=== PATIENT | male | born 1970 | race Two or more races ===

== ENCOUNTER 2017-03-10 18:09 | Inpatient (IN) | payer MEDICARE, MEDICAID ==
[~2017-03-10] VITALS: Ht 182.9 cm; Wt 77.1 kg
--- NOTE | 2017-03-10 18:15 | NUR ---
Dr Villatoro at bedside.
--- NOTE | 2017-03-10 18:19 | NUR ---
Code Stroke activated per Dr Irving fernandez.
--- NOTE | 2017-03-10 18:21 | NUR ---
Pt to Ct with ACLS guidelines in place with myself and training technician.
[2017-03-10 18:31] LABS: BASOPHILS % (AUTO) 0.5 % (0.0-2.0); EOSINOPHILS # (AUTO) 0.4 K/uL (0.0-0.7); EOSINOPHILS % (AUTO) 5.2 % (0.0-7.0); HEMATOCRIT 36.7 % (36.7-47.1); HEMOGLOBIN 12.1 g/dL (12.5-16.3); LYMPHOCYTES # (AUTO) 1.7 K/uL (20.0-40.0); LYMPHOCYTES % (AUTO) 21.4 % (20.5-51.5); MEAN CORPUSCULAR HGB CONC 33 g/dL (32.5-36.3); MEAN CORPUSCULAR VOLUME 84.7 fL (73.0-96.2); MONOCYTES # (AUTO) 0.5 K/uL (2.0-10.0); MONOCYTES % (AUTO) 6.1 % (0.0-11.0); NEUTROPHILS # (AUTO) 5.2 K/uL (1.8-8.9); NEUTROPHILS % (AUTO) 66.8 % (38.5-71.5); PLATELET COUNT (AUTO) 266 K/uL (152-348); RED BLOOD CELL COUNT(AUTO) 4.33 MIL/uL (4.06-5.63); RED CELL DISTRIBUTION WIDTH 13.2 % (12.1-16.2); WHITE BLOOD COUNT (AUTO) 7.8 K/uL (3.6-10.2)
--- NOTE | 2017-03-10 18:32 | NUR ---
Back from Ct.
--- NOTE | 2017-03-10 18:34 | NUR ---
Tele-Neurology activated.
[2017-03-10 18:36] LABS: CALCIUM 9.8 mg/dL (8.5-10.1); POTASSIUM 5.3 mmol/L (3.5-5.1)
[2017-03-10 18:40] LABS: CREATININE 1.9 mg/dL (0.6-1.3)
[2017-03-10 18:41] LABS: ALBUMIN 3.3 g/dL (3.4-5.0); BILIRUBIN,DIRECT 0.1 mg/dL (0.0-0.2); BILIRUBIN,TOTAL 0.4 mg/dL (0.2-1.0); TOTAL PROTEIN, SERUM 7.6 g/dL (6.4-8.2)
--- NOTE | 2017-03-10 18:42 | NUR ---
Dr Winston speaking with pt via telecart.
--- NOTE | 2017-03-10 19:05 | NUR ---
Per Dr Villatoro pt to be admitted to tele.
--- NOTE | 2017-03-10 19:10 | NUR ---
Hands-off report given to Umesh CHAIDEZ.
[2017-03-10] MEDS ORDERED: Z GUARD REMEDY PASTE 57 GM TUBE TOP PRN (19:15)
[2017-03-10] MEDS ORDERED: MAGNESIUM HYDROXIDE 30 ML LIQUID UDC PO PRN (19:15)
[2017-03-10] MEDS ORDERED: ONDANSETRON 4 MG/2 ML VIAL IV PRN (19:15)
[2017-03-10] MEDS ORDERED: HYDROCODONE/APAP 5-325MG TABLET PO PRN (19:15)
[2017-03-10] MEDS ORDERED: ACETAMINOPHEN 325 MG TABLET PO PRN (19:15)
[2017-03-10] MEDS ORDERED: DEXTROSE 50% 50 ML DISP.SYRIN IV PRN (19:15)
[2017-03-10] MEDS ORDERED: ASPIRIN 81 MG TAB.CHEW PO ONE (19:15)
[2017-03-10] MEDS ORDERED: TEMAZEPAM 7.5 MG CAPSULE PO PRN (19:15)
[2017-03-10] MEDS ORDERED: ASPIRIN 81 MG TAB.CHEW ONE (19:18)
--- NOTE | 2017-03-10 19:37 | NUR ---
TEXTED DR. PAYTON FOR MRI APPROVAL.
--- NOTE | 2017-03-10 19:38 | NUR ---
DR. PAYTON TEXTED BACK, ON HOLD FOR NOW UNTIL GIVES OK.
--- NOTE | 2017-03-10 19:52 | NUR ---
Report given to Shobha, advised to f/u with Vadim (head of radiology at [facility]), who states he is waiting from notice from [facility] to proceed with MRI....
--- NOTE | 2017-03-10 20:40 | NUR ---
Pt. admitted to telemetry , under care of Dr. Jerel Padilla, Belongs List completed, pt alert, oriented x 4, no resp distress noted or reported upon transfer assessment... pt transferred via gurney, pt at bedside...
[2017-03-10 21:00] VITALS: BP 138/99
[2017-03-10] MEDS ORDERED: ATORVASTATIN 40 MG TABLET PO SCH (21:00)
[2017-03-10] MEDS: BLOOD SUGAR DIAGNOSTIC 1 EACH STRIP VI SCH (21:00)
[2017-03-10] MEDS: IV NS 1000 ML 1,000 ML IV PRN (22:09)
[2017-03-10] MEDS: MORPHINE SULFATE 2 MG/1 ML DISP.SYRIN IV PRN (22:10)
[2017-03-10] MEDS: INSULIN REGULAR, HUMAN 300 UNITS/3 ML VIAL SQ PRN (22:34)
[2017-03-11 00:41] VITALS: BP 121/69
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
[2017-03-11 04:00] VITALS: BP 118/77
[2017-03-11] MEDS: MORPHINE SULFATE 2 MG/1 ML DISP.SYRIN IV PRN ×4 (05:19→20:35)
[2017-03-11] MEDS: PANTOPRAZOLE SODIUM 40 MG TABLET.DR PO SCH (06:49)
[2017-03-11 06:54] LABS: BASOPHILS # (AUTO) 0.1 K/uL (0.0-8.0); BASOPHILS % (AUTO) 0.9 % (0.0-2.0); EOSINOPHILS # (AUTO) 0.6 K/uL (0.0-0.7); EOSINOPHILS % (AUTO) 7.4 % (0.0-7.0); LYMPHOCYTES # (AUTO) 2.8 K/uL (20.0-40.0); LYMPHOCYTES % (AUTO) 37.1 % (20.5-51.5); MEAN CORPUSCULAR HEMOGLOBIN 28.5 uug (23.8-33.4); MEAN CORPUSCULAR HGB CONC 33 g/dL (32.5-36.3); MEAN CORPUSCULAR VOLUME 85.1 fL (73.0-96.2); MONOCYTES # (AUTO) 0.6 K/uL (2.0-10.0); MONOCYTES % (AUTO) 7.6 % (0.0-11.0); NEUTROPHILS # (AUTO) 3.4 K/uL (1.8-8.9); PLATELET COUNT (AUTO) 219 K/uL (152-348); RED BLOOD CELL COUNT(AUTO) 3.88 MIL/uL (4.06-5.63); RED CELL DISTRIBUTION WIDTH 13.5 % (12.1-16.2); WHITE BLOOD COUNT (AUTO) 7.5 K/uL (3.6-10.2)
[2017-03-11] MEDS: BLOOD SUGAR DIAGNOSTIC 1 EACH STRIP VI SCH ×4 (06:58→20:39)
[2017-03-11 07:31] LABS: ALBUMIN 2.6 g/dL (3.4-5.0); BILIRUBIN,TOTAL 0.3 mg/dL (0.2-1.0); MAGNESIUM 1.3 mg/dL (1.8-2.4); PHOSPHOROUS 3.8 mg/dL (2.5-4.9); POTASSIUM 4.8 mmol/L (3.5-5.1); TOTAL PROTEIN, SERUM 6.4 g/dL (6.4-8.2)
[2017-03-11 07:34] LABS: CREATININE 1.7 mg/dL (0.6-1.3)
[2017-03-11] MEDS: INSULIN REGULAR, HUMAN 300 UNIT/3 ML VIAL SQ PRN ×3 (07:48→16:57)
--- NOTE | 2017-03-11 08:00 | NUR ---
SEEN BY DR PALMA ZELAYA WITH ORDERS, SEE NOTES
[2017-03-11] MEDS: ASPIRIN 325 MG TABLET PO SCH (08:26)
[2017-03-11] MEDS: MAGNESIUM SULFATE/D5W 100 ML IV SCH ×2 (10:58→12:32)
[2017-03-11] MEDS: IV NS 1000 ML 1,000 ML IV PRN (11:09)
[2017-03-11 11:37] VITALS: BP 128/82
--- NOTE | 2017-03-11 12:00 | NUR ---
SEEN BY PT/OT FOR THERAPY SEE NOTES
[2017-03-11 13:16] LABS: *BILIRUBIN,URIN NEGATIVE (NEGATIVE); *BLOOD, URINE Trace-lysed (NEGATIVE); *CLARITY,URINE CLEAR (CLEAR); *COLOR,URINE YELLOW (YELLOW); *KETONES,URINE NEGATIVE (NEGATIVE); *UROBILINOGEN,URINE 0.2 E.U./dl (NORMAL); LEUKOCYTE ESTERASE ,URINE NEGATIVE (NEGATIVE); NITRITE, URINE NEGATIVE (NEGATIVE); PH,URINE 5.5 (5.0-8.0); UGLUCOSE TRACE (NEGATIVE)
[2017-03-11 13:25] LABS: *PROTEIN,URINE 3+ (NEGATIVE)
[2017-03-11 13:28] LABS: *AMPHETAMINE, URINE NEGATIVE (NEGATIVE); *BARBITURATE, URINE NEGATIVE (NEGATIVE); *CANNABINOID, URINE NEGATIVE (NEGATIVE); *COCCAINE, URINE NEGATIVE (NEGATIVE); *OPIATE, URINE POSITIVE (NEGATIVE); *PHENCYCLIDINE SCREEN,URINE NEGATIVE (NEGATIVE)
[2017-03-11 13:31] LABS: BACTERIA,URINE FEW /HPF (NONE SEEN); RBC,URINE 0-3 /HPF (0-3); SQUAMOUS EPITHELIAL CELL,UR NONE SEEN /HPF (NONE SEEN); WBC,URINE 0-3 /HPF (0-3)
--- NOTE | 2017-03-11 15:23 | NUR ---
NO ACUTE CHANGE SR/SB ON MONITOR
[2017-03-11 15:55] VITALS: BP 105/66
[2017-03-11] MEDS ORDERED: BRIM5DRO EACHEYE (16:41)
[2017-03-11] MEDS ORDERED: ATRO10DR OP (16:41)
[2017-03-11] MEDS ORDERED: INSU100C (16:41)
[2017-03-11] MEDS ORDERED: FLUO20CA36 PO (16:41)
[2017-03-11] MEDS ORDERED: DORZ10DR11 EACHEYE (16:41)
[2017-03-11] MEDS ORDERED: ASPI81TA31 PO (16:41)
[2017-03-11] MEDS ORDERED: [UNRECOGNIZED DRUG - CODE] OP (16:41)
[2017-03-11] MEDS ORDERED: ROSU5TAB PO (16:41)
[2017-03-11] MEDS ORDERED: ARIP30TA PO (16:41)
[2017-03-11] MEDS ORDERED: SODI650T PO (16:48)
[2017-03-11] MEDS ORDERED: PRED1TAB PO (16:48)
[2017-03-11] MEDS ORDERED: PRED5DRO7 RIGHTEYE (16:48)
[2017-03-11] MEDS ORDERED: EYEL1TOW2 OP (16:48)
[2017-03-11] MEDS ORDERED: LANS30CA56 PO (16:48)
[2017-03-11] MEDS ORDERED: INSU3INS6 SUBCUT (16:48)
[2017-03-11] MEDS ORDERED: HYDR12.55 PO (16:48)
[2017-03-11] MEDS ORDERED: ASEN10TA9 SL (16:50)
[2017-03-11] MEDS ORDERED: TIMO5DRO4 EACHEYE (16:50)
[2017-03-11] MEDS ORDERED: TAMS-3 PO (16:50)
[2017-03-11] MEDS ORDERED: ZOLP5TAB7 PO (16:50)
[2017-03-11] MEDS ORDERED: ACET1TAB12 PO (16:50)
[2017-03-11] MEDS ORDERED: TRAM50TA2 PO (16:50)
[2017-03-11] MEDS ORDERED: TRAMADOL HCL 50 MG TABLET PO SCH (18:00)
[2017-03-11] MEDS ORDERED: EYELID CLEANSER COMBINATION OP PRN (18:00)
--- NOTE | 2017-03-11 18:08 | NUR ---
NO ACUTE CHANGE, SR ON MONITOR. CONTINUE WITH PAIN MANAGEMENT
[2017-03-11] MEDS ORDERED: DORZ10DR8 EACHEYE (18:33)
[2017-03-11] MEDS ORDERED: CYCL2DRO10 OP (18:34)
[2017-03-11] MEDS ORDERED: POLYVINYL ALCOHOL OPHT DROPS 15 ML BOTTLE EACHEYE PRN (18:45)
--- NOTE | 2017-03-11 20:00 | NUR ---
patient awake,alert,oriented,left side weakness resolved,no slurring speech,ambulating on hallway with family,NSR on monitor,no acute distress noted.
[2017-03-11 20:15] VITALS: BP 106/72
[2017-03-11] MEDS: prednisoLONE ACET 1% OPHT DROP 5 ML BOTTLE RIGHTEYE SCH (20:25)
[2017-03-11] MEDS: INSULIN REGULAR, HUMAN 300 UNITS/3 ML VIAL SQ PRN (20:44)
[2017-03-11] MEDS ORDERED: ATORVASTATIN 10 MG TABLET PO SCH ×3 (21:00)
[2017-03-11] MEDS ORDERED: ATORVASTATIN 40 MG TABLET PO SCH (21:00)
[2017-03-11] MEDS ORDERED: INSULIN DETEMIR 300 UNIT/3 ML CARTRIDGE SQ SCH (21:00)
[2017-03-11] MEDS ORDERED: ARIPIPRAZOLE 10 MG TABLET PO SCH (21:00)
[2017-03-11] MEDS ORDERED: Medication Not On Formulary EA (Rosuvastatin Calcium (Crestor) 1 TAB) PO SCH (21:00)
[2017-03-11] MEDS ORDERED: ZOLPIDEM 5 MG TABLET PO SCH (21:00)
[2017-03-12] VITALS: BP 97/61
[2017-03-12] MEDS: MORPHINE SULFATE 2 MG/1 ML DISP.SYRIN IV PRN ×2 (02:39→08:24)
[2017-03-12 04:00] VITALS: BP 96/62
[2017-03-12] MEDS: PANTOPRAZOLE SODIUM 40 MG TABLET.DR PO SCH (06:17)
[2017-03-12] MEDS: BLOOD SUGAR DIAGNOSTIC 1 EACH STRIP VI SCH (06:18)
--- NOTE | 2017-03-12 06:40 | NUR ---
no acute change ,c/o pain to right hand wound,medicated with Morphine 2mg iv as needed for pain controlled,stroke education material provided,patient verbalized understanding.
--- NOTE | 2017-03-12 07:05 | NUR ---
PT RESTING COMFORTABLY IN BED NO SIGNS OF DISTRESS, PAIN. SR ON MONITOR
[2017-03-12 07:07] LABS: BASOPHILS # (AUTO) 0.1 K/uL (0.0-8.0); BASOPHILS % (AUTO) 1.1 % (0.0-2.0); EOSINOPHILS # (AUTO) 0.6 K/uL (0.0-0.7); EOSINOPHILS % (AUTO) 8.8 % (0.0-7.0); HEMATOCRIT 29.8 % (36.7-47.1); LYMPHOCYTES # (AUTO) 2.6 K/uL (20.0-40.0); LYMPHOCYTES % (AUTO) 37.3 % (20.5-51.5); MEAN CORPUSCULAR HEMOGLOBIN 28.4 uug (23.8-33.4); MEAN CORPUSCULAR HGB CONC 34 g/dL (32.5-36.3); MEAN CORPUSCULAR VOLUME 84.6 fL (73.0-96.2); MONOCYTES # (AUTO) 0.6 K/uL (2.0-10.0); MONOCYTES % (AUTO) 8.7 % (0.0-11.0); NEUTROPHILS % (AUTO) 44.1 % (38.5-71.5); PLATELET COUNT (AUTO) 202 K/uL (152-348); RED BLOOD CELL COUNT(AUTO) 3.52 MIL/uL (4.06-5.63); RED CELL DISTRIBUTION WIDTH 13.7 % (12.1-16.2); WHITE BLOOD COUNT (AUTO) 6.9 K/uL (3.6-10.2)
[2017-03-12 07:12] LABS: CALCIUM 8.6 mg/dL (8.5-10.1); MAGNESIUM 1.8 mg/dL (1.8-2.4); POTASSIUM 4.9 mmol/L (3.5-5.1)
[2017-03-12 07:13] LABS: CREATININE 1.7 mg/dL (0.6-1.3)
--- NOTE | 2017-03-12 07:41 | NUR ---
SEEN BY DR WALDROP WITH ORDERS, SEE NOTES
[2017-03-12] MEDS: ASPIRIN 325 MG TABLET PO SCH (08:11)
[2017-03-12 08:17] VITALS: BP 112/64
[2017-03-12] MEDS: prednisoLONE ACET 1% OPHT DROP 5 ML BOTTLE RIGHTEYE SCH (08:28)
[2017-03-12] MEDS ORDERED: DORZOLAMIDE 2% OPHT DROP 10 ML BOTTLE EACHEYE SCH (09:00)
[2017-03-12] MEDS ORDERED: BRIMONIDINE-P 0.15% OPHT DROP 5 ML BOTTLE EACHEYE SCH (09:00)
[2017-03-12] MEDS ORDERED: FLUOXETINE HCL 20 MG CAPSULE PO SCH (09:00)
[2017-03-12] MEDS ORDERED: HYDROCHLOROTHIAZIDE 12.5 MG CAPSULE PO SCH (09:00)
[2017-03-12] MEDS ORDERED: NICOTINE 21 MG/24HR PATCH TD SCH (09:00)
[2017-03-12] MEDS ORDERED: DORZOLAMIDE/TIMOLOL OPHT DROP 10 ML BOTTLE EACHEYE SCH (09:00)
[2017-03-12] MEDS ORDERED: TAMSULOSIN HCL 0.4 MG CAP.SR.24H PO SCH (09:00)
[2017-03-12] MEDS ORDERED: SODIUM BICARBONATE 650 MG TABLET PO SCH (09:00)
[2017-03-12] MEDS ORDERED: TIMOLOL MALEATE 0.5% OPHT DROP 5 ML BOTTLE EACHEYE SCH (09:00)
[2017-03-12] MEDS ORDERED: CYCLOPENTOLATE 1% OPHT DROP 2 ML BOTTLE EACHEYE SCH (09:00)
[2017-03-12] MEDS ORDERED: [UNRECOGNIZED DRUG - MIXTURE] OP SCH (09:00)
[2017-03-12] MEDS ORDERED: ATROPINE SULFATE 1% OPHT DROP 2 ML LEFTEYE SCH (09:00)
[2017-03-12] MEDS ORDERED: Medication Not On Formulary EA (Hydrochlorothiazide 12.5 MG) PO SCH (09:00)
[2017-03-12] MEDS ORDERED: BRIMONIDINE 0.2% OPHT DROP 10 ML BOTTLE EACHEYE SCH (09:00)
--- NOTE | 2017-03-12 10:10 | NUR ---
Patient provided with discharge instructions and follow up care with PCP and [employer], medication instructions provided and reinforced by Pharmacy, questions and concerns addressed, patient stable. at bedside reinforced with family. belongings returned and accounted for.
[2017-03-12] MEDS ORDERED: TRAMADOL HCL 50 MG TABLET PO PRN (18:00)
== END 2017-03-12 10:55 | disposition home or self-care (01) | DRG 69 ==
LOC: ER 18:11 → EDBD 18:11 → CCU 20:42 → TELE 20:57
PROVIDERS: ADMIT Family Medicine; ATTEND Family Medicine
DX: G45.9 Transient cerebral ischemic attack, unspecified (principal); N17.0 Acute kidney failure with tubular necrosis; I69.854 Hemiplegia and hemiparesis following other cerebrovascular disease affecting left non-dominant side; E11.319 Type 2 diabetes mellitus with unspecified diabetic retinopathy without macular edema; E11.22 Type 2 diabetes mellitus with diabetic chronic kidney disease; E11.21 Type 2 diabetes mellitus with diabetic nephropathy; I25.10 Atherosclerotic heart disease of native coronary artery without angina pectoris; N18.9 Chronic kidney disease, unspecified; E11.65 Type 2 diabetes mellitus with hyperglycemia; E78.5 Hyperlipidemia, unspecified; Z91.14 Patient's other noncompliance with medication regimen; Z86.61 Personal history of infections of the central nervous system; F17.200 Nicotine dependence, unspecified, uncomplicated; I12.9 Hypertensive chronic kidney disease with stage 1 through stage 4 chronic kidney disease, or unspecified chronic kidney disease; N18.3 Chronic kidney disease, stage 3 (moderate); Z98.61 Coronary angioplasty status; N13.9 Obstructive and reflux uropathy, unspecified; V89.2XXS Person injured in unspecified motor-vehicle accident, traffic, sequela
CPT/HCPCS: 36415; 70030-TC; 70450; 71010; 80307; 83735; 84100; 84443; 85025; 85651; 85730; 86592; 92610; 93005; 93307; 93880; 97001; 97003; 97110; 97530; A9150; J1815; J2270; J2650; J3475; J7030

== ENCOUNTER 2019-10-07 22:01 | Emergency (ER) | payer MEDICAID, MEDICARE, OTHER ==
[~2019-10-07] VITALS: Ht 182.9 cm; Wt 83.9 kg
[~2019-10-07 22:01] MED LIST: ACET1TAB12 PO; ARIP30TA3 PO; ASEN10TA9 SL; ATRO10DR OP; BRIM5DRO EACHEYE; CYCL2DRO10 OP; DORZ10DR10 EACHEYE; EYEL1TOW2 OP; FLUO20CA36 PO; HYDR12.55 PO; INSU100C; INSU3INS6 SUBCUT; LANS30CA56 PO; PRED1TAB PO; PRED5DRO16 RIGHTEYE; SODI650T PO; TAMS-3 PO; TIMO5DRO4 EACHEYE; TRAM50TA2 PO; ZOLP5TAB8 PO
[2019-10-07] MEDS ORDERED: GABA-532 PO (22:38)
[2019-10-07] MEDS ORDERED: ATOR40TA PO (22:38)
[2019-10-07] MEDS ORDERED: ASPI81TA31 PO (22:38)
[2019-10-07] MEDS ORDERED: RISP2TAB23 PO (22:38)
[2019-10-07] MEDS ORDERED: SITA50TA PO (22:38)
--- NOTE | 2019-10-07 22:50 | NUR ---
maría cade at bedside for mse.
[2019-10-07] MEDS ORDERED: MORPHINE SULFATE 2 MG/1 ML DISP.SYRIN ONE (22:57)
[2019-10-07] MEDS ORDERED: MORPHINE SULFATE 2 MG/1 ML DISP.SYRIN IV ONE (23:00)
[2019-10-07 23:01] LABS: HEMATOCRIT 29.9 % (40-50); HEMOGLOBIN 9.7 G/DL (14.0-18.0); LYMPHOCYTES % (AUTO) 21.9 % (20.5-51.5); MEAN CORPUSCULAR HEMOGLOBIN 28.6 UUG (27.0-31.0); MEAN CORPUSCULAR HGB CONC 32 g/dL (32.0-37.0); MEAN CORPUSCULAR VOLUME 88.2 FL (82.0-92.0); NEUTROPHILS % (AUTO) 59.1 % (38.5-71.5); PLATELET COUNT (AUTO) 222 K/UL (150-450); RED BLOOD CELL COUNT(AUTO) 3.39 MIL/UL (4.7-6.1); WHITE BLOOD COUNT (AUTO) 6.7 K/UL (4.0-11.2)
[2019-10-07 23:02] LABS: BASOPHILS # (AUTO) 0.1 K/uL (0.0-8.0); BASOPHILS % (AUTO) 1.5 % (0.0-2.0); EOSINOPHILS # (AUTO) 0.6 K/uL (0.0-0.7); EOSINOPHILS % (AUTO) 8.5 % (0.0-7.0); LYMPHOCYTES # (AUTO) 1.5 K/UL (0.8-4.8); MONOCYTES # (AUTO) 0.6 K/UL (0.1-1.30)
[2019-10-07 23:07] LABS: CARBON DIOXIDE 24 mmol/L (21-32); CHLORIDE 114 mmol/L (98-107); POTASSIUM 4.9 mmol/L (3.5-5.1)
[2019-10-07 23:08] LABS: ALKALINE PHOSPHATASE < 10 U/L (50-136); ASPARTATE AMINOTRANSFERASE 14 U/L (15-37); BILIRUBIN,DIRECT 0.1 mg/dL (0.0-0.2); BILIRUBIN,TOTAL 0.3 mg/dL (0.1-1.0); CREATININE 3.4 mg/dL (0.6-1.3); GLUCOSE 109 mg/dL (74-106); UREA NITROGEN, BLOOD 35 mg/dL (7-20)
[2019-10-07 23:09] LABS: ALANINE AMINOTRANSFERASE 24 U/L (16-63); TOTAL PROTEIN, SERUM 7.3 g/dL (6.4-8.2)
--- NOTE | 2019-10-08 00:34 | NUR ---
Patient discharged to home in stable conditon. Written and verbal after care instructions given. Patient verbalizes understanding of instructions. all belongings w/ pt. pt self-ambulated w/o difficulty. 20g iv access in rac removed prior to d/c - inner cannula intact.
[2019-10-08 00:35] VITALS: BP 131/88
== END 2019-10-08 00:35 | disposition home or self-care (01) ==
LOC: ER 22:01
DX: N18.9 Chronic kidney disease, unspecified (principal); I12.9 Hypertensive chronic kidney disease with stage 1 through stage 4 chronic kidney disease, or unspecified chronic kidney disease; E11.22 Type 2 diabetes mellitus with diabetic chronic kidney disease; F32.9 Major depressive disorder, single episode, unspecified; F17.200 Nicotine dependence, unspecified, uncomplicated; Z88.1 Allergy status to other antibiotic agents; Z91.011 Allergy to milk products; Z91.018 Allergy to other foods; Z79.82 Long term (current) use of aspirin; Z79.4 Long term (current) use of insulin; Z79.899 Other long term (current) drug therapy
CPT/HCPCS: 80048; 80076; 85025; 96374; 99283; J2270; A4663

== ENCOUNTER 2021-10-06 15:57 | Inpatient (IN) | payer OTHER ==
[~2021-10-06] VITALS: Ht 182.9 cm; Wt 75.7 kg
[~2021-10-06 15:57] MED LIST changes: +ASPI81TA31 PO; +ATOR40TA PO; +GABA-532 PO; +RISP2TAB85 PO; +SITA50TA PO
--- NOTE | 2021-10-06 16:12 | NUR ---
PT DOES NOT REMEMBER CHANGES IN HIS HOME MEDICATIONS. PT's IS GOING TO BRING HIS HOME MEDICATION LIST LATER.
--- NOTE | 2021-10-06 16:39 | NUR ---
Saline lock placed to (L) wrist and labs drawn. Pt resting in semi fowlers position.
[2021-10-06] MEDS ORDERED: ASPIRIN 325 MG TABLET PO ONE (16:45)
[2021-10-06] MEDS ORDERED: MORPHINE SULFATE 4 MG/1 ML DISP.SYRIN IV ONE ×2 (16:45→19:30)
[2021-10-06 17:01] LABS: MEAN CORPUSCULAR HEMOGLOBIN 29.9 uug (23.8-33.4); PLATELET COUNT (AUTO) 94 K/uL (152-348)
[2021-10-06 17:02] LABS: ALANINE AMINOTRANSFERASE 15 U/L (16-63); ALKALINE PHOSPHATASE 121 U/L (50-136); ASPARTATE AMINOTRANSFERASE 11 U/L (15-37); BILIRUBIN,DIRECT 0.1 mg/dL (0.0-0.2); BILIRUBIN,TOTAL 0.3 mg/dL (0.2-1.0); CARBON DIOXIDE 22 mmol/L (21-32); CHLORIDE 106 mmol/L (98-107); GLUCOSE 99 mg/dL (74-106); POTASSIUM 4.2 mmol/L (3.5-5.1); TOTAL PROTEIN, SERUM 6.8 g/dL (6.4-8.2); UREA NITROGEN, BLOOD 31 mg/dL (7-18)
[2021-10-06 17:07] LABS: HEMATOCRIT 18.8 % (36.7-47.1)
--- NOTE | 2021-10-06 17:11 | NUR ---
Medications administered as ordered. Spouse at bedside. Spouse states able to change pt diaper herself, was provided with necessary supplies.
[2021-10-06] MEDS ORDERED: ASPIRIN 325 MG TABLET ONE (17:12)
[2021-10-06] MEDS ORDERED: MORPHINE SULFATE 4 MG/1 ML DISP.SYRIN ONE ×2 (17:12→19:41)
[2021-10-06] MEDS ORDERED: VALP250C3 PO (17:26)
[2021-10-06] MEDS ORDERED: MULT-596 (17:26)
[2021-10-06] MEDS ORDERED: PANT40TA49 PO (17:26)
[2021-10-06] MEDS ORDERED: AMOX500C2 PO (17:26)
[2021-10-06] MEDS ORDERED: QUET50TA PO (17:26)
[2021-10-06] MEDS ORDERED: OLAN10TA3 PO (17:26)
[2021-10-06] MEDS ORDERED: LEVO75TA7 PO (17:26)
[2021-10-06] MEDS ORDERED: CYCL5TAB PO (17:26)
[2021-10-06 17:28] LABS: *OCCULT BLOOD STOOL POSITIVE (NEGATIVE)
[2021-10-06] MEDS ORDERED: METF-440 PO (17:30)
[2021-10-06] MEDS ORDERED: PIPERACILLIN SODIUM/TAZOBACTAM 3.375 G in IV DEXTROSE 5% 50 ML IV ONE (18:15)
--- NOTE | 2021-10-06 19:05 | NUR ---
Hand-off report given to KAYLYNN Singletary
[2021-10-06] MEDS ORDERED: PIPERACILLIN/TAZOBACTAM/D5W 50 ML IV ONE (19:17)
--- NOTE | 2021-10-06 20:05 | NUR ---
Started IV blood transfusion to IV on left wrist 20G, blood product double verified with Rayshawn Breaux RN.
--- NOTE | 2021-10-06 20:28 | NUR ---
Called [facility] to hien Zhou NP for an update due to patient's insurance going to send patient to produce laborer tomorrow.
[2021-10-06] MEDS ORDERED: MAGNESIUM HYDROXIDE 30 ML LIQUID UDC PO PRN (21:15)
[2021-10-06] MEDS ORDERED: ACETAMINOPHEN 325 MG TABLET PO PRN (21:15)
[2021-10-06] MEDS ORDERED: ONDANSETRON 4 MG/2 ML VIAL IV PRN (21:15)
[2021-10-06] MEDS ORDERED: Z GUARD REMEDY PASTE 57 GM TUBE TOP PRN (21:15)
[2021-10-06] MEDS ORDERED: MORPHINE SULFATE 2 MG/1 ML DISP.SYRIN IV PRN (21:30)
[2021-10-06] MEDS ORDERED: MORPHINE SULFATE 2 MG/1 ML DISP.SYRIN ONE ×2 (21:31→23:12)
--- NOTE | 2021-10-06 22:25 | NUR ---
Blood transfusion finished, patient tolerated procedure well, no acute signs of distress, VSS.
[2021-10-06] MEDS: MORPHINE SULFATE 2 MG/1 ML DISP.SYRIN IV PRN (23:06)
[2021-10-06 23:07] LABS: BAND % (MANUAL) 2 % (0-10); EOSINOPHILS % (MANUAL) 9 % (0-8); LYMPHOCYTES % (MANUAL) 23 % (20-40); MONOCYTES % (MANUAL) 15 % (2-10); NEUTROPHILS % (MANUAL) 51 % (42-75)
[2021-10-07] VITALS (11 sets, daily range): BP systolic 128–152; BP diastolic 65–104
--- NOTE | 2021-10-07 01:48 | NUR ---
Called [facility] to page Vernon Cao DNP.
--- NOTE | 2021-10-07 01:55 | NUR ---
Received call back from Vernon Cao DNP, to upgrade patient to [facility].
--- NOTE | 2021-10-07 03:54 | NUR ---
Report given to Naima Johnson RN CCU.
--- NOTE | 2021-10-07 04:30 | NUR ---
Received report from [facility] CHAIDE[facility] ED. Patient was transferred from ED and admitted to CCU Bed 1 via rstigler, without any incident. Patient is awake, A/Ox4. Denies pain at this time. No signs of acute distress noted. RUC permacath for hemodialysis, L wrist 20G SL patent and flushed. Patient's belongings list checked upon transfer. Body assessment dont. Wound photos taken and placed to chart. Bed at lowest position, brakes on, bed alarm on, side rails x2. Call light within reach. Will continue to monitor closely.
[2021-10-07 05:44] LABS: HEMATOCRIT 21.9 % (36.7-47.1); MEAN CORPUSCULAR HEMOGLOBIN 29.8 uug (23.8-33.4); MEAN CORPUSCULAR VOLUME 91.8 fL (73.0-96.2); PLATELET COUNT (AUTO) 91 K/uL (152-348)
[2021-10-07 05:50] LABS: MAGNESIUM 1.9 mg/dL (1.8-2.4)
[2021-10-07 06:00] LABS: CREATININE 8.8 mg/dL (0.6-1.3)
--- NOTE | 2021-10-07 06:00 | NUR ---
Lab called and spoke with Raymon for critical lab results.
--- NOTE | 2021-10-07 06:20 | NUR ---
Called [facility] and jeniffer with Reymundo Cao NP regarding patient's critical lab results, with new orders to transfuse 1"u" PRBC now. Noted and carried out.
--- NOTE | 2021-10-07 06:50 | NUR ---
Started blood transfusion. VSS. Will continue to monitor closely.
--- NOTE | 2021-10-07 07:30 | NUR ---
Left patient asleep, arousable to name; no signs of pain nor acute distress noted. Still with ongoing blood transfusion, no allergic reactions noted. VSS. Endorsed continuity of care.
--- NOTE | 2021-10-07 07:49 | NUR ---
Received pt. sleeping and currently on 2LNC saturation of %. no respiratory distress noted. Hemodynamically stable rate in the 60-70's with SBP of 140/82. IV access patent and infusing with 2nd unit of PRBC's pt. tolerating infusion well no distress noted. will continue to monitor. Admitting physician called to be notified of pt's arrival to the unit.
--- NOTE | 2021-10-07 08:30 | NUR ---
Patient seen by broom handle dipper Dr. Redmond, at this time discussed care plan with pt. and awaiting information of possible transfer.
[2021-10-07] MEDS: METOPROLOL TARTRATE 25 MG TABLET PO SCH ×2 (09:15→20:36)
[2021-10-07] MEDS ORDERED: ISOSORBIDE MONONITRATE 30 MG TAB.SR.24H PO SCH (09:15)
[2021-10-07] MEDS: MORPHINE SULFATE 2 MG/1 ML DISP.SYRIN IV PRN ×2 (09:25→14:54)
--- NOTE | 2021-10-07 11:22 | NUR ---
At this time pt. had a visitor as stated by visitor "". She feed pt. a big sandwich. At this time both pt. and educated one more time on NPO status and pending possible egd, or colonoscopy when transferred. Pt's verbalized understanding but pt. himself become upset started coursing and use of profanity language and threaten to leave AMA. attending called and notified.
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
[2021-10-07] MEDS ORDERED: VALPROIC ACID 250 MG CAPSULE PO SCH (12:11)
--- NOTE | 2021-10-07 12:25 | NUR ---
Patient refused lab draw at this time.
[2021-10-07] MEDS ORDERED: PIPERACILLIN/TAZO 2.25 G in IV DEXTROSE 5% 50 ML IV SCH (12:30)
[2021-10-07] MEDS ORDERED: PIPERACILLIN/TAZO 2.25 G in IV DEXTROSE 5% 50 ML IV ONE (14:00)
--- NOTE | 2021-10-07 14:24 | NUR ---
A call from case management and as informed pt. had been approved to have a procedure done at [facility] and will be going via [facility] at the endo of the shift.
[2021-10-07] MEDS: PANTOPRAZOLE SODIUM 40 MG VIAL IV SCH ×2 (14:30→20:38)
[2021-10-07] MEDS: prednisoLONE ACET 1% OPHT DROP 5 ML BOTTLE RIGHTEYE SCH ×3 (14:32→20:38)
--- NOTE | 2021-10-07 16:26 | NUR ---
A call from Angeles FOWLER and I was informed pt. will be berry picker at 2030, going to room 322-1 and call for report to .
--- NOTE | 2021-10-07 16:58 | NUR ---
A call to [facility] at to give report on pt. been transfer to room 322-bed 1. as per hospice community liaison charge nurse busy and unable to come to the phone, and they requested call back number and as stated "will call when ready for report".
--- NOTE | 2021-10-07 17:23 | NUR ---
A call from Destin Zhou and orders to print TMS and continue with all medications received. Orders implemented.
[2021-10-07] MEDS ORDERED: CYCLOBENZAPRINE HCL 10 MG TABLET PO SCH (18:00)
[2021-10-07] MEDS ORDERED: OLANZAPINE 5 MG TABLET PO SCH (18:00)
[2021-10-07] MEDS ORDERED: CYCLOBENZAPRINE HCL PO SCH (18:00)
[2021-10-07 18:19] LABS: HEMATOCRIT 24.1 % (36.7-47.1)
--- NOTE | 2021-10-07 18:30 | NUR ---
A call from Michelle from [facility] report given she was informed that pt. will be parts picker as arranged by CM at 2020
--- NOTE | 2021-10-07 19:00 | NUR ---
Received patient asleep, arousable to name, A/Ox4. Denies pain at this time. No acute distress noted. On NC @ 2LPM, O2 sat 99%. IV site patent and flushed. No erythema, bleeding or infiltration noted. Patient is for transfer to [facility]. Comfort care provided. Bed at lowest position, brakes on, siderails x2, call light within reach. Will continue to monitor.
--- NOTE | 2021-10-07 19:20 | NUR ---
Patient made aware regarding patient's transfer.
--- NOTE | 2021-10-07 20:25 | NUR ---
Called [facility] ambulance and spoke with Shabnam following up with patient's transportation. She mentioned, "They are on their way."
--- NOTE | 2021-10-07 20:26 | NUR ---
Informed patient that transportation is on their way.
[2021-10-07] MEDS ORDERED: predniSONE 1 MG TABLET PO SCH (21:00)
[2021-10-07] MEDS ORDERED: ATORVASTATIN 40 MG TABLET PO SCH (21:00)
--- NOTE | 2021-10-07 21:05 | NUR ---
LEVI arrived and picked up patient for transfer to [facility]. Patient was transferred via gurney with NC @ 2LPM, without any incident, accompanied by 2 elementary educator. No signs of acute distress noted. Discharge packet and instructions handed to EMT. All belongings including wheelchair are with patient. Vital signs stable T=98.3, HR=61, RR=15, HT=785/83. No signs of acute distress noted. Addendum: 10/07/21 at 2154 by Naima Wiley RN O2 sat 98%.
--- NOTE | 2021-10-07 21:15 | NUR ---
Called [facility] and spoke with Polo, product development director Nurse regarding patient's transfer and en route.
[2021-10-08] MEDS ORDERED: PANTOPRAZOLE SODIUM 40 MG TABLET.DR PO SCH (07:00)
[2021-10-08] MEDS ORDERED: LEVOTHYROXINE SODIUM 75 MCG TABLET PO SCH (07:00)
[2021-10-08] MEDS ORDERED: VALPROIC ACID 250 MG CAPSULE PO SCH (09:00)
[2021-10-08] MEDS ORDERED: ATORVASTATIN 40 MG TABLET PO SCH (09:00)
[2021-10-09] MEDS ORDERED: DAPTOMYCIN 500 MG in IV NORMAL SALINE 50 ML IV SCH (09:00)
== END 2021-10-07 21:15 | disposition short-term general hospital (02) | DRG 377 ==
LOC: ER 15:59 → TRANSITION 21:12 → CCU 10-07 03:59
PROVIDERS: ADMIT Nurse Practitioner Family; ATTEND Nurse Practitioner Family
PROC: 30233N1 Transfusion of Nonautologous Red Blood Cells into Peripheral Vein, Percutaneous Approach (ICD-10-PCS; principal; 2021-10-06)
DX: K92.2 Gastrointestinal hemorrhage, unspecified (principal); N18.6 End stage renal disease; I21.A1 Myocardial infarction type 2; G82.20 Paraplegia, unspecified; D62 Acute posthemorrhagic anemia; I13.11 Hypertensive heart and chronic kidney disease without heart failure, with stage 5 chronic kidney disease, or end stage renal disease; C34.90 Malignant neoplasm of unspecified part of unspecified bronchus or lung; E11.22 Type 2 diabetes mellitus with diabetic chronic kidney disease; Z99.2 Dependence on renal dialysis; Z79.84 Long term (current) use of oral hypoglycemic drugs; Z95.5 Presence of coronary angioplasty implant and graft; Z88.1 Allergy status to other antibiotic agents; Z91.011 Allergy to milk products; Z59.01 Sheltered homelessness; Z90.49 Acquired absence of other specified parts of digestive tract; F17.210 Nicotine dependence, cigarettes, uncomplicated; D69.6 Thrombocytopenia, unspecified; I25.10 Atherosclerotic heart disease of native coronary artery without angina pectoris; Z79.4 Long term (current) use of insulin; Z79.899 Other long term (current) drug therapy; Z86.73 Personal history of transient ischemic attack (TIA), and cerebral infarction without residual deficits; Z98.1 Arthrodesis status; T14.90XS Injury, unspecified, sequela; V49.9XXS Car occupant (driver) (passenger) injured in unspecified traffic accident, sequela
CPT/HCPCS: 36415; 70030-TC; 71045; 83735; 85018; 85025; 86850; 86900; 86901; 86920; 87040; 87400; 93005; 93307; A4663; A6209; C9113; G0378; J2270; J2543; J2650; J3490; J7040; J7050; J7060; J7512; P9016

== ENCOUNTER 2022-08-31 15:34 | Inpatient (IN) | payer OTHER ==
[~2022-08-31] VITALS: Ht 188 cm; Wt 69.1 kg
[~2022-08-31 15:34] MED LIST changes: -ACET1TAB12 PO; -ARIP30TA3 PO; -ASEN10TA9 SL; -ASPI81TA31 PO; -ATRO10DR OP; -BRIM5DRO EACHEYE; -CYCL2DRO10 OP; +CYCL5TAB PO; -DORZ10DR10 EACHEYE; -EYEL1TOW2 OP; -FLUO20CA36 PO; -GABA-532 PO; -HYDR12.55 PO; -INSU100C; -INSU3INS6 SUBCUT; -LANS30CA56 PO; +LEVO75TA7 PO; +MULT-596 PO; +OLAN10TA3 PO; +PANT40TA49 PO; +PRED5DRO16 LEFTEYE; -PRED5DRO16 RIGHTEYE; +QUET50TA PO; -RISP2TAB85 PO; -SITA50TA PO; -SODI650T PO; -TAMS-3 PO; -TIMO5DRO4 EACHEYE; -TRAM50TA2 PO; +VALP250C3 PO; +VALP250S3 PO; -ZOLP5TAB8 PO
--- NOTE | 2022-08-31 15:35 | NUR ---
at bedside for evaluation.
[2022-08-31 16:18] LABS: HEMATOCRIT 27.5 % (36.7-47.1); MEAN CORPUSCULAR HEMOGLOBIN 27.4 uug (23.8-33.4); MEAN CORPUSCULAR VOLUME 86.5 fL (73.0-96.2); PLATELET COUNT (AUTO) 185 K/uL (152-348)
--- NOTE | 2022-08-31 16:25 | NUR ---
unable to place an IV, attepted by 3 nurses and . requesting midline placement, tank house operator states she is attempting to reach Ariella on-call picc nurse.
--- NOTE | 2022-08-31 16:35 | NUR ---
Midline catheter size 20 gauge inserted by in [facility].
[2022-08-31 16:50] LABS: ALANINE AMINOTRANSFERASE 33 U/L (16-63); ALKALINE PHOSPHATASE 190 U/L (50-136); ASPARTATE AMINOTRANSFERASE 40 U/L (15-37); BILIRUBIN,DIRECT 0.1 mg/dL (0.0-0.2); BILIRUBIN,TOTAL 0.5 mg/dL (0.2-1.0); CARBON DIOXIDE 19 mmol/L (21-32); CHLORIDE 105 mmol/L (98-107); GLUCOSE 91 mg/dL (74-106); POTASSIUM 4.8 mmol/L (3.5-5.1); TOTAL PROTEIN, SERUM 7.8 g/dL (6.4-8.2); UREA NITROGEN, BLOOD 65 mg/dL (7-18)
[2022-08-31] MEDS ORDERED: REMEDY ESSENTIAL ZINC PASTE 113 GM TP PRN (18:30)
[2022-08-31] MEDS ORDERED: ONDANSETRON 4 MG/2 ML VIAL IV PRN (18:30)
[2022-08-31] MEDS ORDERED: CALC667T8 PO (18:44)
[2022-08-31] MEDS ORDERED: EPOE4000 SQ (18:46)
[2022-08-31] MEDS ORDERED: ERTA1VIA4 IV (18:48)
[2022-08-31] MEDS ORDERED: ASPI-1420 PO (18:55)
[2022-08-31] MEDS ORDERED: BRIM5DRO3 LEFTEYE (18:58)
--- NOTE | 2022-08-31 19:00 | NUR ---
Report received from Mel CHAIDEZ.
--- NOTE | 2022-08-31 19:01 | NUR ---
hand off report given to KAYLYNN Askew. pt in stable condition.
[2022-08-31] MEDS ORDERED: DORZ10DR11 LEFTEYE (19:03)
[2022-08-31 19:09] LABS: NEUTROPHILS % (MANUAL) 55 % (42-75)
[2022-08-31 19:10] LABS: EOSINOPHILS % (MANUAL) 27 % (0-8); LYMPHOCYTES % (MANUAL) 16 % (20-40); MONOCYTES % (MANUAL) 2 % (2-10)
[2022-08-31] MEDS ORDERED: LATA2.5D15 LEFTEYE (19:13)
[2022-08-31] MEDS ORDERED: SITA50TA PO (19:13)
[2022-08-31] MEDS ORDERED: ESCI5TAB PO (19:13)
[2022-08-31] MEDS ORDERED: LEVE500T20 PO (19:13)
[2022-08-31] MEDS ORDERED: GABA-532 PO (19:13)
--- NOTE | 2022-08-31 19:38 | NUR ---
Called 3rd fl for tele bed, was infromed by Kiera that they are out of ratio and the patient will stay in ER unit until next shift. Admitting was informed to place patient in transition.
--- NOTE | 2022-08-31 20:00 | NUR ---
Patient ate 100% for dinner.
[2022-08-31] MEDS ORDERED: ACETAMINOPHEN 325 MG TABLET ONE (20:43)
[2022-08-31] MEDS: ACETAMINOPHEN 325 MG TABLET PO PRN (20:50)
[2022-08-31] MEDS ORDERED: predniSONE 1 MG TABLET PO SCH (21:00)
--- NOTE | 2022-08-31 21:05 | NUR ---
Contacted Dr. Mccarthy regard prednisone order to clarify dose and was instructed to ask patient. Patient instructed me to call his (Caesar Mercer) regarding dose for his prednisone order. She was unable to tell me at this time; therefore, I put non-admin (SEE NURSING NOTES).
[2022-08-31] MEDS ORDERED: INSULIN REGULAR, HUMAN 300 UNIT/3 ML VIAL SQ PRN (21:15)
[2022-08-31] MEDS ORDERED: DEXTROSE 50% 50 ML DISP.SYRIN IV PRN (21:15)
--- NOTE | 2022-08-31 22:30 | NUR ---
Patient had a large BM (soft/ unformed). Johanna care complete and new gown placed on patient.
[2022-08-31] MEDS ORDERED: HYDROCODONE/APAP 5-325MG TABLET PO PRN (23:45)
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
[2022-08-31] MEDS ORDERED: HYDROCODONE/APAP 5-325MG TABLET ONE (23:48)
--- NOTE | 2022-09-01 02:00 | NUR ---
Patient requested more food. Tuna sandwich given.
--- NOTE | 2022-09-01 05:00 | NUR ---
Medium BM (soft/unformed). Johanna care performed.
[2022-09-01 05:57] LABS: HEMATOCRIT 26.4 % (36.7-47.1); MEAN CORPUSCULAR HEMOGLOBIN 27.5 uug (23.8-33.4); MEAN CORPUSCULAR VOLUME 85.7 fL (73.0-96.2); PLATELET COUNT (AUTO) 172 K/uL (152-348)
[2022-09-01 06:10] LABS: MAGNESIUM 2.2 mg/dL (1.8-2.4); POTASSIUM 5.1 mmol/L (3.5-5.1)
[2022-09-01 06:19] LABS: CREATININE 13.4 mg/dL (0.6-1.3); PHOSPHOROUS 10.5 mg/dL (2.5-4.9)
--- NOTE | 2022-09-01 06:20 | NUR ---
Called [facility] to [facility] hospit[facility] mobile phone salesperson physician (Dr. Aguilar) to inform her of critical lab values phosphorus 10.5 and creatinine 7.4.
--- NOTE | 2022-09-01 06:40 | NUR ---
Small BM (soft/unformed). Johanna care performed.
[2022-09-01] MEDS ORDERED: PANTOPRAZOLE SODIUM 40 MG TABLET.DR PO ONE (06:45)
[2022-09-01] MEDS: PANTOPRAZOLE SODIUM 40 MG TABLET.DR PO SCH (06:48)
[2022-09-01] MEDS ORDERED: LEVOTHYROXINE SODIUM 75 MCG TABLET PO SCH ×2 (07:00→09:00)
--- NOTE | 2022-09-01 07:03 | NUR ---
Report given hailee Adams RN.
--- NOTE | 2022-09-01 07:10 | NUR ---
Received report from rn. Newman. patient sleeping HR of 78 sbp 147/89. saturation of 100% on RA. will continue with care plan.
[2022-09-01] MEDS: BLOOD SUGAR DIAGNOSTIC 1 EACH STRIP VI SCH ×4 (08:17→22:13)
--- NOTE | 2022-09-01 08:25 | NUR ---
Patient taken up to room 309 bedside report given to ju Guallpa. Pt was able to a regular bed with minimal assistance. Breafas tray set in from of him. Educated contact lens lathe operator light use and bed controls. patient left eating breafas.
[2022-09-01 08:30] VITALS: BP 139/84
--- NOTE | 2022-09-01 08:30 | NUR ---
received from ER per nathan awake alert and oriented, on room air, dialysis catheter on right upper groin area- dsy dry and intact, right upper midline in place, routine admission care rendered, initial assessment done, tele applied- SR 60's, safety measures maintained
[2022-09-01] MEDS ORDERED: ATORVASTATIN 40 MG TABLET PO SCH (09:00)
[2022-09-01] MEDS ORDERED: VALPROIC ACID 250 MG CAPSULE PO SCH ×2 (09:00)
[2022-09-01] MEDS: HEPARIN SODIUM,PORCINE 5,000 UNITS/ML VIAL SQ SCH ×2 (09:23→22:13)
[2022-09-01 11:13] VITALS: BP 133/76
[2022-09-01] MEDS: ASPIRIN 81 MG TAB.CHEW PO SCH (11:36)
[2022-09-01 11:44] LABS: EOSINOPHILS % (MANUAL) 26 % (0-8); LYMPHOCYTES % (MANUAL) 30 % (20-40); MONOCYTES % (MANUAL) 6 % (2-10); NEUTROPHILS % (MANUAL) 38 % (42-75)
[2022-09-01] MEDS ORDERED: HYDROCODONE/APAP 5-325MG TABLET PO ONE (11:45)
--- NOTE | 2022-09-01 11:45 | NUR ---
seen by Arnold Mccarthy- pt asking for pain med IV morphine for eye pain secondary to eye surgery- [place] ordered but pt refused. incontinent of liquid stools- sent stool for c diff o/p c/s nick, pt is paraplegic
[2022-09-01] MEDS ORDERED: OFLO5DRO3 LEFTEYE (15:51)
[2022-09-01] MEDS ORDERED: LATA5DRO LEFTEYE (15:52)
[2022-09-01] MEDS ORDERED: EPOE4000 SQ (15:59)
[2022-09-01 16:23] VITALS: BP 138/79
--- NOTE | 2022-09-01 17:44 | NUR ---
no distress noted, all needs attended and met, call light within reach, tele SR 60's
[2022-09-01] MEDS: CALCIUM ACETATE 667 MG CAP/TAB PO SCH (18:36)
[2022-09-01 20:44] VITALS: BP 130/75
[2022-09-01] MEDS ORDERED: predniSONE 1 MG TABLET PO SCH (21:00)
[2022-09-01] MEDS: GABAPENTIN 100 MG CAPSULE PO SCH (22:01)
[2022-09-01] MEDS: ATORVASTATIN 40 MG TABLET PO SCH (22:01)
[2022-09-01] MEDS: levETIRAcetam 500 MG TABLET PO SCH (22:01)
[2022-09-01] MEDS: prednisoLONE ACET 1% OPHT DROP 5 ML BOTTLE LEFTEYE SCH (22:12)
[2022-09-01] MEDS: CIPROFLOXACIN 0.3% OPHT DROP 2.5 ML BOTTLE LEFTEYE SCH (22:12)
[2022-09-02 00:12] VITALS: BP 116/74
[2022-09-02 04:28] VITALS: BP 113/67
[2022-09-02] MEDS: PANTOPRAZOLE SODIUM 40 MG TABLET.DR PO SCH (06:12)
[2022-09-02] MEDS: BLOOD SUGAR DIAGNOSTIC 1 EACH STRIP VI SCH ×4 (06:12→21:14)
--- NOTE | 2022-09-02 06:43 | NUR ---
Patient awake hob elevated, sinus rhythm on tele, no complain of pain, no sob no chest paint, right upper groin dialysis cath dressing changed, patient has soft BM not diarrhea. BS stable, call light within reach.
[2022-09-02 07:22] LABS: MEAN CORPUSCULAR HEMOGLOBIN 27.9 uug (23.8-33.4); MEAN CORPUSCULAR VOLUME 86.4 fL (73.0-96.2); PLATELET COUNT (AUTO) 161 K/uL (152-348)
[2022-09-02 07:53] LABS: MAGNESIUM 2.3 mg/dL (1.8-2.4)
[2022-09-02 08:01] LABS: CREATININE 14.8 mg/dL (0.6-1.3); PHOSPHOROUS 11.1 mg/dL (2.5-4.9); POTASSIUM 6.2 mmol/L (3.5-5.1)
[2022-09-02] MEDS: ASPIRIN 81 MG TAB.CHEW PO SCH (08:36)
[2022-09-02] MEDS: levETIRAcetam 500 MG TABLET PO SCH ×2 (08:39→17:30)
[2022-09-02] MEDS: CALCIUM ACETATE 667 MG CAP/TAB PO SCH ×3 (08:39→17:30)
[2022-09-02] MEDS: GABAPENTIN 100 MG CAPSULE PO SCH ×3 (08:39→17:30)
[2022-09-02] MEDS: HEPARIN SODIUM,PORCINE 5,000 UNITS/ML VIAL SQ SCH ×2 (08:40→21:06)
[2022-09-02] MEDS: prednisoLONE ACET 1% OPHT DROP 5 ML BOTTLE LEFTEYE SCH ×4 (08:51→21:06)
[2022-09-02] MEDS: CIPROFLOXACIN 0.3% OPHT DROP 2.5 ML BOTTLE LEFTEYE SCH ×4 (08:51→21:06)
[2022-09-02] MEDS ORDERED: OFLOXACIN LEFTEYE SCH (09:00)
[2022-09-02] MEDS ORDERED: EPOETIN ALFA-EPBX 10,000 UNIT/ML VIAL SQ SCH (09:00)
[2022-09-02] MEDS ORDERED: [UNRECOGNIZED DRUG - OTHER] LEFTEYE SCH (09:00)
[2022-09-02] MEDS ORDERED: ASPIRIN EC 81 MG TABLET.DR PO SCH (09:00)
--- NOTE | 2022-09-02 11:00 | NUR ---
dialysis nurse here, pt has a malik cath on right femoral area- informed of the body fluid needed for c/s and g/s- no peritoneal cath noted, clarified with hospitalist if we need to swab site of malik cath for c/s and g/s or blood culture but said not needed
[2022-09-02 11:32] VITALS: BP 132/75
--- NOTE | 2022-09-02 11:45 | NUR ---
informed by dialysis nurse karthik gan cath- able to flush but unable to pull out blood- he informed Dr Villalpando and nurse informed hospitalist Jeremías Thomas
--- NOTE | 2022-09-02 13:06 | NUR ---
WOUND CARE CONSULT: PT PRESENTS WITH MULTIPLE AREAS OF SCARRING INCLUDING BACK, SACRUM AND LOWER EXTREMITIES WELL TOE AMPUTATIONS AND RASH TO GROIN, PERINEUM, PRESENT ON ADMISSION. RECOMMENDATIONS MADE FOR SKIN PROTECTION. DISCUSSED WITH NURSING STAFF. MD IN AGREEMENT WITH PLAN OF CARE.
--- NOTE | 2022-09-02 13:40 | NUR ---
up in chair by PT- pt blind, call light on hand
[2022-09-02] MEDS: CLOTRIMAZOLE 1% CREAM 30 GM TUBE TOP SCH ×2 (14:03→21:14)
[2022-09-02 14:19] LABS: EOSINOPHILS % (MANUAL) 29 % (0-8); LYMPHOCYTES % (MANUAL) 32 % (20-40); MONOCYTES % (MANUAL) 5 % (2-10); NEUTROPHILS % (MANUAL) 34 % (42-75)
[2022-09-02 16:00] VITALS: BP 116/64
[2022-09-02] MEDS ORDERED: SODIUM POLYSTYRENE SULFONATE 15 G/60 ML LIQUID UDC PO ONE (16:30)
--- NOTE | 2022-09-02 18:28 | NUR ---
resting in bed, no distress, all needs attended and met, call light within reach
--- NOTE | 2022-09-02 19:30 | NUR ---
Received patient lying in bed. Asleep but easily arouse to verbal stimuli. Patient legally blind. Denies any pain or SOB. In no apparent distress. Right upper arm midline intact and patent. Bishnu cath on left femoral area intact. Needs assessed and attended to. Safety measure initiated and call light within reached.
[2022-09-02 20:00] VITALS: BP 105/56
[2022-09-02] MEDS: ATORVASTATIN 40 MG TABLET PO SCH (21:05)
[2022-09-02] MEDS: ACETAMINOPHEN 325 MG TABLET PO PRN (23:17)
[2022-09-03 04:50] VITALS: BP 130/71
--- NOTE | 2022-09-03 05:22 | NUR ---
In no apparent distress. No side effect noted form ophthalmic antibiotic. Eyes still reddened especially left eye. Denies any pain or SOB. Midline on right upper arm remains intact and patent. Needs attended to and met. Safety measure maintained and call light within reached.
[2022-09-03] MEDS: PANTOPRAZOLE SODIUM 40 MG TABLET.DR PO SCH (06:10)
[2022-09-03] MEDS: BLOOD SUGAR DIAGNOSTIC 1 EACH STRIP VI SCH ×4 (06:48→20:28)
[2022-09-03 06:50] LABS: MEAN CORPUSCULAR VOLUME 86.2 fL (73.0-96.2); PLATELET COUNT (AUTO) 136 K/uL (152-348)
[2022-09-03 07:18] LABS: MAGNESIUM 2.3 mg/dL (1.8-2.4)
[2022-09-03 07:31] LABS: CREATININE 15.6 mg/dL (0.6-1.3); PHOSPHOROUS 11.4 mg/dL (2.5-4.9); POTASSIUM 6.3 mmol/L (3.5-5.1)
[2022-09-03 08:06] LABS: EOSINOPHILS % (MANUAL) 30 % (0-8); LYMPHOCYTES % (MANUAL) 30 % (20-40); MONOCYTES % (MANUAL) 9 % (2-10); NEUTROPHILS % (MANUAL) 31 % (42-75)
[2022-09-03] MEDS ORDERED: INSULIN REGULAR, HUMAN 300 UNIT/3 ML VIAL IV ONE ×2 (08:30→21:30)
[2022-09-03] MEDS ORDERED: DEXTROSE 50% 50 ML DISP.SYRIN IV ONE ×2 (08:30→21:30)
[2022-09-03] MEDS: ASPIRIN 81 MG TAB.CHEW PO SCH (08:33)
[2022-09-03] MEDS: levETIRAcetam 500 MG TABLET PO SCH ×2 (08:33→17:19)
[2022-09-03] MEDS: CALCIUM ACETATE 667 MG CAP/TAB PO SCH ×3 (08:33→17:19)
[2022-09-03] MEDS: GABAPENTIN 100 MG CAPSULE PO SCH ×3 (08:33→17:20)
[2022-09-03] MEDS: HEPARIN SODIUM,PORCINE 5,000 UNITS/ML VIAL SQ SCH ×2 (08:34→20:20)
[2022-09-03] MEDS: CIPROFLOXACIN 0.3% OPHT DROP 2.5 ML BOTTLE LEFTEYE SCH ×4 (08:48→20:19)
[2022-09-03] MEDS: prednisoLONE ACET 1% OPHT DROP 5 ML BOTTLE LEFTEYE SCH ×4 (08:48→20:19)
[2022-09-03] MEDS: CLOTRIMAZOLE 1% CREAM 30 GM TUBE TOP SCH ×2 (08:59→17:24)
[2022-09-03 11:45] VITALS: BP 134/71
[2022-09-03] MEDS: MORPHINE SULFATE 4 MG/1 ML DISP.SYRIN IV PRN (15:18)
[2022-09-03 16:16] VITALS: BP 129/71
--- NOTE | 2022-09-03 16:45 | NUR ---
Contacted Zac Thomas regarding patient's dialysis port. He said he spoke to Skyler Andrea and that he is coming in the late afternoon.
--- NOTE | 2022-09-03 19:50 | NUR ---
Follow up with KAYLYNN KEEN for central line placement for dialysis. Stated he will be here at [facility]. Charge nurse Fariba and Welder Apprentice Combination Benjamin morillo.
[2022-09-03 20:00] VITALS: BP 111/63
[2022-09-03] MEDS: ACETAMINOPHEN 325 MG TABLET PO PRN (20:19)
[2022-09-03] MEDS: ATORVASTATIN 40 MG TABLET PO SCH (20:19)
--- NOTE | 2022-09-03 20:30 | NUR ---
Dr Thomas with order to repeat K level STAT. Order noted and will carry out. wind tunnel technician made aware.
--- NOTE | 2022-09-03 21:15 | NUR ---
Critical lab value K+ 7.0 reported by cath lab tech Marciano. Telephone call to MORRIS Thomas and made aware with orders made, read back and will carry out.
[2022-09-03] MEDS ORDERED: SODIUM POLYSTYRENE SULFONATE 15 G/60 ML LIQUID UDC PO ONE (21:30)
[2022-09-03] MEDS ORDERED: SODIUM BICARBONATE 8.4% 50 MEQ/50 ML DISP.SYRIN IV ONE (21:30)
--- NOTE | 2022-09-03 22:25 | NUR ---
COMMUNICATION WITH AND IRVIN JOHNSON NP REGARDING HEMODIALYSIS CATHETER INSERTION CONSENT TO BE SIGNED IN AM BY BOTH OF THEM BECAUSE PT IS BLIND BUT IS ALERT AND ORIENTED.
--- NOTE | 2022-09-04 00:20 | NUR ---
Follow up with RN Gaston KEEN to replace Dialysis catheter, stated that he will be here after doing one more patient at [facility]. Both charge nurse and supervisor fish bait processing aware. Dr. Grace made aware that line has not be place yet at this time. shoe sprayer here at the unit awaiting placement of dialysis catheter. Patient asleep at this time. In no acute distress. Appears comfortable. NSR on tele with HR of 66/min at this time. No pauses noted.
[2022-09-04 00:49] VITALS: BP 102/53
[2022-09-04] MEDS: MORPHINE SULFATE 4 MG/1 ML DISP.SYRIN IV PRN ×2 (00:50→08:43)
--- NOTE | 2022-09-04 01:19 | NUR ---
Dialysis nurse will try to use Bishnu cath on right femoral area for dialysis as it seems to be flushing better at this time. Dialysis started. Dr. Villalpando also visited and spoke to both roll on worker and KAYLYNN Feldman.
--- NOTE | 2022-09-04 03:21 | NUR ---
Hemodialysis done with 2L out per dialysis nurse Kyler. Latest BP 119/66. Patient tolerated well.
[2022-09-04 04:52] VITALS: BP 111/61
[2022-09-04] MEDS: PANTOPRAZOLE SODIUM 40 MG TABLET.DR PO SCH (06:08)
[2022-09-04] MEDS: BLOOD SUGAR DIAGNOSTIC 1 EACH STRIP VI SCH ×2 (06:37→12:01)
[2022-09-04 07:06] LABS: HEMATOCRIT 23.1 % (36.7-47.1); MEAN CORPUSCULAR HEMOGLOBIN 28.3 uug (23.8-33.4); MEAN CORPUSCULAR VOLUME 83.9 fL (73.0-96.2); PLATELET COUNT (AUTO) 133 K/uL (152-348)
[2022-09-04 07:25] LABS: PHOSPHOROUS 7.7 mg/dL (2.5-4.9)
--- NOTE | 2022-09-04 08:00 | NUR ---
AWAKE ALERT AND ORIENTED X3, DENIES PAIN OR SOB SR ON MONITOR
[2022-09-04] MEDS: GABAPENTIN 100 MG CAPSULE PO SCH ×2 (08:32→12:04)
[2022-09-04] MEDS: ASPIRIN 81 MG TAB.CHEW PO SCH (08:32)
[2022-09-04] MEDS: CALCIUM ACETATE 667 MG CAP/TAB PO SCH ×2 (08:32→12:04)
[2022-09-04] MEDS: levETIRAcetam 500 MG TABLET PO SCH (08:32)
[2022-09-04] MEDS: CIPROFLOXACIN 0.3% OPHT DROP 2.5 ML BOTTLE LEFTEYE SCH ×2 (08:34→12:04)
[2022-09-04] MEDS: prednisoLONE ACET 1% OPHT DROP 5 ML BOTTLE LEFTEYE SCH ×2 (08:34→12:04)
[2022-09-04] MEDS: HEPARIN SODIUM,PORCINE 5,000 UNITS/ML VIAL SQ SCH (08:36)
[2022-09-04] MEDS: CLOTRIMAZOLE 1% CREAM 30 GM TUBE TOP SCH (08:37)
--- NOTE | 2022-09-04 10:00 | NUR ---
SEEN BY HOSPITALIST WITH DISCHARGE ORDER, UPHOLSTERY COVERS INSPECTOR MADE AWARE.
[2022-09-04 11:03] VITALS: BP 133/68
--- NOTE | 2022-09-04 13:30 | NUR ---
DISCHARGED HOME STABLE ACCOMPANIED BY
[2022-09-04 15:06] LABS: HEPATITIS B SURFACE AG Confirm. indicated (Negative); HEPATITIS B SURFACE AG CONF Positive (.)
[2022-09-05 08:06] LABS: HEPATITIS B SURFACE AG Negative (Negative)
== END 2022-09-04 14:25 | disposition home or self-care (01) | DRG 698 ==
LOC: ER 15:34 → TRANSITION 19:39 → TELE3 09-01 08:06 → MEDSURG3 09-01 09:01 → TELE3 09-01 09:02 → MEDSURG3 09-02 16:00 → TELE3 09-03 09:20 → MEDSURG3 09-04 09:23
PROVIDERS: ADMIT Registered Nurse; ATTEND Nurse Practitioner Acute Care
PROC: 5A1D70Z Performance of Urinary Filtration, Intermittent, Less than 6 Hours Per Day (ICD-10-PCS; principal; 2022-09-04)
DX: T82.41XA Breakdown (mechanical) of vascular dialysis catheter, initial encounter (principal); I21.A1 Myocardial infarction type 2; N18.6 End stage renal disease; G82.20 Paraplegia, unspecified; E87.20 Acidosis, unspecified; E11.22 Type 2 diabetes mellitus with diabetic chronic kidney disease; Z99.2 Dependence on renal dialysis; Z91.15 Patient's noncompliance with renal dialysis; E87.5 Hyperkalemia; G40.909 Epilepsy, unspecified, not intractable, without status epilepticus; I25.10 Atherosclerotic heart disease of native coronary artery without angina pectoris; R53.1 Weakness; E78.5 Hyperlipidemia, unspecified; F32.A Depression, unspecified; Z85.118 Personal history of other malignant neoplasm of bronchus and lung; V89.2XXS Person injured in unspecified motor-vehicle accident, traffic, sequela; Z95.5 Presence of coronary angioplasty implant and graft; Y71.2 Prosthetic and other implants, materials and accessory cardiovascular devices associated with adverse incidents; E83.39 Other disorders of phosphorus metabolism; D63.1 Anemia in chronic kidney disease; D72.10 Eosinophilia, unspecified; Z94.7 Corneal transplant status; Z86.73 Personal history of transient ischemic attack (TIA), and cerebral infarction without residual deficits; Z20.822 Contact with and (suspected) exposure to COVID-19; Z79.84 Long term (current) use of oral hypoglycemic drugs
CPT/HCPCS: 36415; 70030-TC; 71045; 83605; 83735; 84100; 84132; 84484; 85025; 85730; 86625; 86706; 87040; 87046; 87177; 87340; 90937; 93005; 97161; A4663; G0378; J0885; J1644; J1815; J2270; J2650; J3490; J7512

== ENCOUNTER 2023-08-24 16:18 | Inpatient (IN) | payer OTHER, MEDICAID ==
[~2023-08-24] VITALS: Ht 182.9 cm; Wt 79.1 kg
[~2023-08-24 16:18] MED LIST changes: +ASPI-1420 PO; +BRIM5DRO3 LEFTEYE; +CALC667T8 PO; -CYCL5TAB PO; +DORZ10DR11 LEFTEYE; +EPOE4000 SQ; +GABA-532 PO; +LATA5DRO LEFTEYE; +LEVE500T20 PO; -LEVO75TA7 PO; +OFLO5DRO3 LEFTEYE; -OLAN10TA3 PO; -PRED1TAB PO; -QUET50TA PO; -VALP250C3 PO; -VALP250S3 PO
[2023-08-24 16:45] LABS: ABG BASE EXCESS -6.9 mmol/L; ABG HCO3 18.8 mmol/L; ABG PCO2 38.4 mmHg (35.0-45.0); ABG PH 7.307 (7.350-7.450); ABG PO2 78.9 mmHg (75.0-100.0); ABG SITE RIGHT RADIAL; COHb 0.9 % (0.5-1.5); MetHb 0.3 % (0.0-1.5); O2Hb 92.1 % (94.0-97.0)
[2023-08-24 17:34] LABS: BASOPHILS # (AUTO) 0.1 K/UL (0.0-0.2); BASOPHILS % (AUTO) 1.4 % (0.0-2.0); EOSINOPHILS # (AUTO) 0.7 K/uL (0.0-0.7); EOSINOPHILS % (AUTO) 11.4 % (0.0-7.0); HEMATOCRIT 33.2 % (36.7-47.1); HEMOGLOBIN 10.6 g/dL (12.5-16.3); LYMPHOCYTES # (AUTO) 1.1 K/uL (0.8-4.8); LYMPHOCYTES % (AUTO) 17.5 % (20.5-51.5); MEAN CORPUSCULAR HEMOGLOBIN 28.1 uug (23.8-33.4); MEAN CORPUSCULAR HGB CONC 32 g/dL (32.5-36.3); MEAN CORPUSCULAR VOLUME 87.8 fL (73.0-96.2); MONOCYTES # (AUTO) 0.7 K/uL (0.1-1.30); MONOCYTES % (AUTO) 10.6 % (0.0-11.0); NEUTROPHILS # (AUTO) 3.7 K/uL (1.8-8.9); NEUTROPHILS % (AUTO) 59.1 % (38.5-71.5); PLATELET COUNT (AUTO) 105 K/uL (152-348); RED BLOOD CELL COUNT(AUTO) 3.78 MIL/uL (4.06-5.63); RED CELL DISTRIBUTION WIDTH 17.1 % (12.1-16.2); WHITE BLOOD COUNT (AUTO) 6.2 K/uL (3.6-10.2)
[2023-08-24] MEDS ORDERED: ONDANSETRON 4 MG/2 ML VIAL IV ONE (17:45)
[2023-08-24] MEDS ORDERED: ASPIRIN 81 MG TAB.CHEW PO ONE (17:45)
[2023-08-24] MEDS ORDERED: MORPHINE SULFATE 4 MG/1 ML DISP.SYRIN IV ONE (17:45)
[2023-08-24 18:00] LABS: DIFFERENTIAL COMMENT 1
[2023-08-24] MEDS ORDERED: ASPIRIN 81 MG TAB.CHEW ONE (18:01)
[2023-08-24] MEDS ORDERED: ONDANSETRON 4 MG/2 ML VIAL ONE (18:02)
[2023-08-24] MEDS ORDERED: MORPHINE SULFATE 4 MG/1 ML DISP.SYRIN ONE ×2 (18:02→18:09)
[2023-08-24] MEDS ORDERED: FUROSEMIDE 20 MG/2 ML VIAL IVP ONE (18:15)
[2023-08-24] MEDS ORDERED: SODIUM BICARBONATE 8.4% 100 MEQ in IV D5W 1000ML 1,000 ML IV ONE (18:15)
[2023-08-24] MEDS ORDERED: CALCIUM CHLORIDE 1 GM/10 ML DISP.SYRIN IVP ONE (18:15)
[2023-08-24] MEDS ORDERED: ALBUTEROL SULFATE 2.5 MG/3 ML NEBU NEB ONE (18:15)
[2023-08-24 18:16] LABS: ALANINE AMINOTRANSFERASE 18 U/L (16-63); ALBUMIN 3.7 g/dL (3.4-5.0); ALKALINE PHOSPHATASE 172 U/L (50-136); ASPARTATE AMINOTRANSFERASE 11 U/L (15-37); BILIRUBIN,DIRECT 0.3 mg/dL (0.0-0.2); BILIRUBIN,TOTAL 0.6 mg/dL (0.2-1.0); CALCIUM 8.4 mg/dL (8.5-10.1); CARBON DIOXIDE 21 mmol/L (21-32); CHLORIDE 100 mmol/L (98-107); GLUCOSE 91 mg/dL (74-106); POTASSIUM 6.1 mmol/L (3.5-5.1); SODIUM SERUM 137 mmol/L (136-145); TOTAL PROTEIN, SERUM 7.5 g/dL (6.4-8.2)
[2023-08-24 18:24] VITALS: O2SAT 100; O2SAT 99
[2023-08-24 18:26] LABS: UREA NITROGEN, BLOOD 98 mg/dL (7-18)
[2023-08-24 18:28] LABS: CREATININE 12.6 mg/dL (0.6-1.3)
[2023-08-24] MEDS ORDERED: DEXTROSE 50% 50 ML DISP.SYRIN IV PRN (19:00)
[2023-08-24] MEDS ORDERED: INSULIN REGULAR, HUMAN 300 UNIT/3 ML VIAL SQ PRN (19:00)
[2023-08-24] MEDS ORDERED: INSULIN REGULAR, HUMAN 300 UNITS/3 ML VIAL SQ PRN (19:00)
[2023-08-24 19:08] LABS: NT-PRO BNP 47428 pg/mL (0-125)
[2023-08-24 22:35] VITALS: BP 166/100; TEMP 98.2; O2SAT 97
[2023-08-24] MEDS: MORPHINE SULFATE 2 MG/1 ML DISP.SYRIN IVP PRN (23:21)
[2023-08-24] MEDS: BLOOD SUGAR DIAGNOSTIC 1 EACH STRIP VI SCH (23:34)
[2023-08-25 00:34] VITALS: BP 155/90; TEMP 98.2; O2SAT 96
[2023-08-25] MEDS: MORPHINE SULFATE 2 MG/1 ML DISP.SYRIN IVP PRN ×3 (03:34→17:46)
[2023-08-25] MEDS: BLOOD SUGAR DIAGNOSTIC 1 EACH STRIP VI SCH ×4 (06:18→20:28)
[2023-08-25 07:00] VITALS: BP 158/72; TEMP 98.2; O2SAT 96
[2023-08-25 08:09] LABS: BASOPHILS # (AUTO) 0.1 K/UL (0.0-0.2); EOSINOPHILS # (AUTO) 0.5 K/uL (0.0-0.7); EOSINOPHILS % (AUTO) 9.1 % (0.0-7.0); HEMOGLOBIN 9.4 g/dL (12.5-16.3); LYMPHOCYTES % (AUTO) 17.7 % (20.5-51.5); MEAN CORPUSCULAR HEMOGLOBIN 28.4 uug (23.8-33.4); MEAN CORPUSCULAR HGB CONC 33 g/dL (32.5-36.3); MEAN CORPUSCULAR VOLUME 87.4 fL (73.0-96.2); MONOCYTES # (AUTO) 0.5 K/uL (0.1-1.30); MONOCYTES % (AUTO) 9.1 % (0.0-11.0); NEUTROPHILS # (AUTO) 3.5 K/uL (1.8-8.9); NEUTROPHILS % (AUTO) 62.1 % (38.5-71.5); PLATELET COUNT (AUTO) 94 K/uL (152-348); RED BLOOD CELL COUNT(AUTO) 3.32 MIL/uL (4.06-5.63); RED CELL DISTRIBUTION WIDTH 16.7 % (12.1-16.2); WHITE BLOOD COUNT (AUTO) 5.7 K/uL (3.6-10.2)
[2023-08-25 08:12] LABS: DIFFERENTIAL COMMENT 1
[2023-08-25 08:29] LABS: CALCIUM 8.1 mg/dL (8.5-10.1); POTASSIUM 5.8 mmol/L (3.5-5.1)
[2023-08-25 08:33] LABS: CREATININE 13.3 mg/dL (0.6-1.3)
[2023-08-25] MEDS: GABAPENTIN 100 MG CAPSULE PO SCH ×3 (08:37→17:15)
[2023-08-25] MEDS: CALCIUM ACETATE 667 MG CAP/TAB PO SCH ×3 (08:38→17:15)
[2023-08-25] MEDS: MULTIVITAMINS,THERAPEUTIC TABLET PO SCH (08:38)
[2023-08-25] MEDS: levETIRAcetam 250 MG TABLET PO SCH ×2 (08:38→20:28)
[2023-08-25] MEDS: HEPARIN SODIUM,PORCINE 5,000 UNITS/ML VIAL SQ SCH ×2 (08:39→17:16)
[2023-08-25] MEDS: ATORVASTATIN 40 MG TABLET PO SCH (08:40)
[2023-08-25] MEDS ORDERED: PANTOPRAZOLE SODIUM 40 MG TABLET.DR PO SCH (09:00)
[2023-08-25] MEDS ORDERED: ASPIRIN EC 81 MG TABLET.DR PO SCH (09:00)
[2023-08-25 11:30] VITALS: BP 141/82; TEMP 98.6; O2SAT 95
[2023-08-25 14:49] VITALS: BP 145/84; TEMP 98.3; O2SAT 95
[2023-08-25 16:37] VITALS: O2SAT 95
[2023-08-25 20:00] VITALS: BP 131/72; TEMP 97.7; O2SAT 96
[2023-08-26] MEDS: MORPHINE SULFATE 2 MG/1 ML DISP.SYRIN IVP PRN ×4 (00:03→22:36)
[2023-08-26 01:00] VITALS: BP 146/90; TEMP 97.7; O2SAT 96
[2023-08-26 04:27] VITALS: BP 126/66; TEMP 97.7; O2SAT 96
[2023-08-26] MEDS: PANTOPRAZOLE SODIUM 40 MG TABLET.DR PO SCH (06:03)
[2023-08-26] MEDS: BLOOD SUGAR DIAGNOSTIC 1 EACH STRIP VI SCH ×4 (06:11→21:26)
[2023-08-26 07:43] LABS: BASOPHILS % (AUTO) 0.8 % (0.0-2.0); EOSINOPHILS # (AUTO) 0.5 K/uL (0.0-0.7); EOSINOPHILS % (AUTO) 9.5 % (0.0-7.0); HEMATOCRIT 26.9 % (36.7-47.1); HEMOGLOBIN 8.9 g/dL (12.5-16.3); LYMPHOCYTES # (AUTO) 0.8 K/uL (0.8-4.8); LYMPHOCYTES % (AUTO) 14.2 % (20.5-51.5); MEAN CORPUSCULAR HEMOGLOBIN 28.6 uug (23.8-33.4); MEAN CORPUSCULAR HGB CONC 33 g/dL (32.5-36.3); MEAN CORPUSCULAR VOLUME 86.2 fL (73.0-96.2); MONOCYTES # (AUTO) 0.4 K/uL (0.1-1.30); MONOCYTES % (AUTO) 8.2 % (0.0-11.0); NEUTROPHILS # (AUTO) 3.6 K/uL (1.8-8.9); NEUTROPHILS % (AUTO) 67.3 % (38.5-71.5); PLATELET COUNT (AUTO) 81 K/uL (152-348); RED BLOOD CELL COUNT(AUTO) 3.12 MIL/uL (4.06-5.63); RED CELL DISTRIBUTION WIDTH 16.7 % (12.1-16.2); WHITE BLOOD COUNT (AUTO) 5.4 K/uL (3.6-10.2)
[2023-08-26 08:14] LABS: DIFFERENTIAL COMMENT 1
[2023-08-26] MEDS: CALCIUM ACETATE 667 MG CAP/TAB PO SCH ×3 (08:29→18:04)
[2023-08-26] MEDS: ATORVASTATIN 40 MG TABLET PO SCH (08:29)
[2023-08-26] MEDS: GABAPENTIN 100 MG CAPSULE PO SCH ×3 (08:29→18:04)
[2023-08-26] MEDS: MULTIVITAMINS,THERAPEUTIC TABLET PO SCH (08:29)
[2023-08-26] MEDS: levETIRAcetam 250 MG TABLET PO SCH ×2 (08:29→21:27)
[2023-08-26 08:31] LABS: ALBUMIN 3.2 g/dL (3.4-5.0); BILIRUBIN,TOTAL 0.6 mg/dL (0.2-1.0); CALCIUM 8.5 mg/dL (8.5-10.1); MAGNESIUM 2.2 mg/dL (1.8-2.4); PHOSPHOROUS 6.9 mg/dL (2.5-4.9); POTASSIUM 4.9 mmol/L (3.5-5.1); TOTAL PROTEIN, SERUM 6.6 g/dL (6.4-8.2)
[2023-08-26 08:44] LABS: CREATININE 9.3 mg/dL (0.6-1.3)
[2023-08-26 08:56] LABS: THYROID STIMULATING HORMONE 1.675 mIU/mL (0.358-3.740)
[2023-08-26] MEDS ORDERED: HEPARIN SODIUM,PORCINE 5,000 UNITS/ML VIAL SQ SCH (09:00)
[2023-08-26] MEDS ORDERED: ASPIRIN EC 81 MG TABLET.DR PO SCH (10:43)
[2023-08-26] MEDS: ONDANSETRON 4 MG/2 ML VIAL IV PRN ×2 (11:15→18:03)
[2023-08-26] MEDS: METOPROLOL TARTRATE 25 MG TABLET PO SCH ×2 (12:11→21:27)
[2023-08-26 14:02] LABS: ABG BASE EXCESS -6.2 mmol/L; ABG HCO3 21.9 mmol/L; ABG PCO2 56.9 mmHg (35.0-45.0); ABG PH 7.204 (7.350-7.450); ABG PO2 65.7 mmHg (75.0-100.0); ABG SITE RIGHT RADIAL; ABG TOTAL HEMOGLOBIN 10.4 G/dL (13.5-18.0); COHb 1.4 % (0.5-1.5); MetHb 0.3 % (0.0-1.5); O2Hb 87.4 % (94.0-97.0); VENT MODE Nasal Cannula
[2023-08-26] MEDS ORDERED: IV NORMAL SALINE 250 ML IV ONE (14:30)
[2023-08-26] MEDS ORDERED: APIXABAN 5 MG TABLET PO SCH ×2 (17:00)
[2023-08-26] MEDS ORDERED: diphenhydrAMINE 25 MG/10 ML UDC NG PRN (20:45)
[2023-08-26 21:00] VITALS: BP 122/78; TEMP 97; O2SAT 99
[2023-08-26] MEDS ORDERED: diphenhydrAMINE 25 MG CAP PO ONE (21:44)
[2023-08-27] VITALS (10 sets, daily range): BP systolic 92–133; BP diastolic 44–78; TEMP 98.1–98.7; O2SAT 94–99
[2023-08-27] MEDS: diphenhydrAMINE 25 MG CAP PO PRN (01:46)
[2023-08-27] MEDS: PANTOPRAZOLE SODIUM 40 MG TABLET.DR PO SCH (06:03)
[2023-08-27] MEDS: MORPHINE SULFATE 2 MG/1 ML DISP.SYRIN IVP PRN (06:16)
[2023-08-27] MEDS: levETIRAcetam 250 MG TABLET PO SCH ×2 (08:18→20:46)
[2023-08-27] MEDS: CALCIUM ACETATE 667 MG CAP/TAB PO SCH ×3 (08:18→17:30)
[2023-08-27] MEDS: MULTIVITAMINS,THERAPEUTIC TABLET PO SCH (08:19)
[2023-08-27] MEDS: GABAPENTIN 100 MG CAPSULE PO SCH ×3 (08:19→17:30)
[2023-08-27] MEDS: METOPROLOL TARTRATE 25 MG TABLET PO SCH ×2 (08:20→20:45)
[2023-08-27 08:49] LABS: CALCIUM 8.6 mg/dL (8.5-10.1)
[2023-08-27] MEDS ORDERED: APIXABAN 2.5 MG TABLET PO SCH (09:00)
[2023-08-27 09:16] LABS: CREATININE 10.8 mg/dL (0.6-1.3); POTASSIUM 6.3 mmol/L (3.5-5.1)
[2023-08-27 09:27] LABS: BASOPHILS # (AUTO) 0.1 K/UL (0.0-0.2); BASOPHILS % (AUTO) 1.1 % (0.0-2.0); DIFFERENTIAL COMMENT 0; EOSINOPHILS # (AUTO) 0.4 K/uL (0.0-0.7); EOSINOPHILS % (AUTO) 8.1 % (0.0-7.0); HEMATOCRIT 28.7 % (36.7-47.1); HEMOGLOBIN 9.1 g/dL (12.5-16.3); LYMPHOCYTES # (AUTO) 0.9 K/uL (0.8-4.8); LYMPHOCYTES % (AUTO) 18.2 % (20.5-51.5); MEAN CORPUSCULAR HEMOGLOBIN 28.1 uug (23.8-33.4); MEAN CORPUSCULAR HGB CONC 32 g/dL (32.5-36.3); MEAN CORPUSCULAR VOLUME 88.4 fL (73.0-96.2); MONOCYTES # (AUTO) 0.5 K/uL (0.1-1.30); MONOCYTES % (AUTO) 10.7 % (0.0-11.0); NEUTROPHILS # (AUTO) 3.1 K/uL (1.8-8.9); NEUTROPHILS % (AUTO) 61.9 % (38.5-71.5); PLATELET COUNT (AUTO) 87 K/uL (152-348); RED BLOOD CELL COUNT(AUTO) 3.25 MIL/uL (4.06-5.63); RED CELL DISTRIBUTION WIDTH 16.7 % (12.1-16.2); WHITE BLOOD COUNT (AUTO) 4.9 K/uL (3.6-10.2)
[2023-08-27] MEDS: PIPERACILLIN/TAZO 2.25 G in IV DEXTROSE 5% 50 ML IV SCH ×3 (10:01→22:47)
[2023-08-27] MEDS ORDERED: SODIUM POLYSTYRENE SULFONATE 15 G/60 ML LIQUID UDC PO ONE (10:30)
[2023-08-27 10:32] LABS: ABG BASE EXCESS -8.2 mmol/L; ABG HCO3 20.6 mmol/L; ABG PCO2 59.6 mmHg (35.0-45.0); ABG PH 7.157 (7.350-7.450); ABG PO2 68.1 mmHg (75.0-100.0); ABG SITE RIGHT RADIAL; ABG TOTAL HEMOGLOBIN 10.2 G/dL (13.5-18.0); MetHb 0.3 % (0.0-1.5); O2Hb 87.3 % (94.0-97.0); VENT MODE Nasal Cannula
[2023-08-28 00:18] VITALS: BP 111/64; TEMP 98.2; O2SAT 97
[2023-08-28 04:30] VITALS: BP 139/81; TEMP 98.4; O2SAT 96
[2023-08-28] MEDS: PIPERACILLIN/TAZO 2.25 G in IV DEXTROSE 5% 50 ML IV SCH ×3 (05:01→22:12)
[2023-08-28] MEDS: PANTOPRAZOLE SODIUM 40 MG TABLET.DR PO SCH (06:34)
[2023-08-28 07:03] LABS: BASOPHILS # (AUTO) 0.1 K/UL (0.0-0.2); BASOPHILS % (AUTO) 2.1 % (0.0-2.0); EOSINOPHILS # (AUTO) 0.4 K/uL (0.0-0.7); EOSINOPHILS % (AUTO) 9.3 % (0.0-7.0); HEMATOCRIT 27.6 % (36.7-47.1); HEMOGLOBIN 8.8 g/dL (12.5-16.3); LYMPHOCYTES # (AUTO) 0.8 K/uL (0.8-4.8); LYMPHOCYTES % (AUTO) 16.9 % (20.5-51.5); MEAN CORPUSCULAR HGB CONC 32 g/dL (32.5-36.3); MEAN CORPUSCULAR VOLUME 87.6 fL (73.0-96.2); MONOCYTES # (AUTO) 0.6 K/uL (0.1-1.30); MONOCYTES % (AUTO) 12.7 % (0.0-11.0); NEUTROPHILS # (AUTO) 2.6 K/uL (1.8-8.9); PLATELET COUNT (AUTO) 79 K/uL (152-348); RED BLOOD CELL COUNT(AUTO) 3.15 MIL/uL (4.06-5.63); RED CELL DISTRIBUTION WIDTH 16.5 % (12.1-16.2); WHITE BLOOD COUNT (AUTO) 4.4 K/uL (3.6-10.2)
[2023-08-28 07:24] LABS: DIFFERENTIAL COMMENT 1
[2023-08-28 07:51] LABS: ALBUMIN 3.1 g/dL (3.4-5.0); BILIRUBIN,TOTAL 0.5 mg/dL (0.2-1.0); CALCIUM 8.4 mg/dL (8.5-10.1); MAGNESIUM 2.2 mg/dL (1.8-2.4); POTASSIUM 4.5 mmol/L (3.5-5.1); TOTAL PROTEIN, SERUM 6.6 g/dL (6.4-8.2)
[2023-08-28 07:54] LABS: CREATININE 8.1 mg/dL (0.6-1.3)
[2023-08-28 08:00] VITALS: BP 144/75; TEMP 98; O2SAT 96
[2023-08-28] MEDS: levETIRAcetam 250 MG TABLET PO SCH ×2 (08:39→22:12)
[2023-08-28] MEDS: MULTIVITAMINS,THERAPEUTIC TABLET PO SCH (08:40)
[2023-08-28] MEDS: CALCIUM ACETATE 667 MG CAP/TAB PO SCH ×3 (08:40→17:24)
[2023-08-28] MEDS: GABAPENTIN 100 MG CAPSULE PO SCH ×3 (08:40→17:24)
[2023-08-28] MEDS: METOPROLOL TARTRATE 25 MG TABLET PO SCH ×2 (08:40→22:11)
[2023-08-28] MEDS: MORPHINE SULFATE 2 MG/1 ML DISP.SYRIN IVP PRN (10:26)
[2023-08-28 13:00] VITALS: BP 132/70; TEMP 97; O2SAT 96
[2023-08-28 17:00] VITALS: BP 109/69; TEMP 98; O2SAT 97
[2023-08-28 20:45] VITALS: BP 116/66; O2SAT 96
[2023-08-29 00:10] VITALS: BP 113/56; TEMP 98.1; O2SAT 94
[2023-08-29 04:13] VITALS: BP 111/72; TEMP 98; O2SAT 92
[2023-08-29] MEDS: PIPERACILLIN/TAZO 2.25 G in IV DEXTROSE 5% 50 ML IV SCH ×3 (05:12→22:32)
[2023-08-29] MEDS: PANTOPRAZOLE SODIUM 40 MG TABLET.DR PO SCH (06:11)
[2023-08-29 06:58] LABS: ABG BASE EXCESS -0.6 mmol/L; ABG HCO3 27.3 mmol/L; ABG PCO2 63.7 mmHg (35.0-45.0); ABG PO2 117.3 mmHg (75.0-100.0); ABG SITE RIGHT BRACHIAL; ABG TOTAL HEMOGLOBIN 9.7 G/dL (13.5-18.0); MetHb 0.3 % (0.0-1.5); O2Hb 95.9 % (94.0-97.0)
[2023-08-29 07:17] LABS: BASOPHILS % (AUTO) 0.3 % (0.0-2.0); EOSINOPHILS # (AUTO) 0.5 K/uL (0.0-0.7); EOSINOPHILS % (AUTO) 9.5 % (0.0-7.0); HEMATOCRIT 26.9 % (36.7-47.1); HEMOGLOBIN 8.7 g/dL (12.5-16.3); LYMPHOCYTES # (AUTO) 0.8 K/uL (0.8-4.8); MEAN CORPUSCULAR HEMOGLOBIN 28.3 uug (23.8-33.4); MEAN CORPUSCULAR HGB CONC 32 g/dL (32.5-36.3); MEAN CORPUSCULAR VOLUME 87.4 fL (73.0-96.2); MONOCYTES # (AUTO) 0.5 K/uL (0.1-1.30); NEUTROPHILS # (AUTO) 3.3 K/uL (1.8-8.9); NEUTROPHILS % (AUTO) 64.2 % (38.5-71.5); PLATELET COUNT (AUTO) 80 K/uL (152-348); RED BLOOD CELL COUNT(AUTO) 3.07 MIL/uL (4.06-5.63); RED CELL DISTRIBUTION WIDTH 16.2 % (12.1-16.2); WHITE BLOOD COUNT (AUTO) 5.1 K/uL (3.6-10.2)
[2023-08-29 07:26] LABS: DIFFERENTIAL COMMENT 1
[2023-08-29 07:58] LABS: C-REACTIVE PROTEIN 3.8 mg/dL (0.0-0.9); CALCIUM 8.5 mg/dL (8.5-10.1); CREATININE 6.9 mg/dL (0.6-1.3); MAGNESIUM 2.1 mg/dL (1.8-2.4); PHOSPHOROUS 7.5 mg/dL (2.5-4.9)
[2023-08-29 07:59] LABS: POTASSIUM 4.6 mmol/L (3.5-5.1)
[2023-08-29] MEDS: GABAPENTIN 100 MG CAPSULE PO SCH ×3 (08:37→17:11)
[2023-08-29] MEDS: MULTIVITAMINS,THERAPEUTIC TABLET PO SCH (08:38)
[2023-08-29] MEDS: levETIRAcetam 250 MG TABLET PO SCH ×2 (08:38→20:29)
[2023-08-29] MEDS: METOPROLOL TARTRATE 25 MG TABLET PO SCH ×2 (08:38→20:29)
[2023-08-29] MEDS: MORPHINE SULFATE 2 MG/1 ML DISP.SYRIN IVP PRN ×2 (08:40→20:30)
[2023-08-29] MEDS: CALCIUM ACETATE 667 MG CAP/TAB PO SCH ×3 (08:40→17:11)
[2023-08-29 08:47] LABS: HIV-1 p24 ANTIGEN NON REACTIVE (NONREACTIVE); HIV-1/2 ANTIBODY NON REACTIVE (NONREACTIVE)
[2023-08-29 09:04] LABS: *RHEUMATOID FACTOR SCREEN NEGATIVE (NEGATIVE)
[2023-08-29 11:29] VITALS: BP 124/72; TEMP 98.5; O2SAT 100
[2023-08-29] MEDS ORDERED: IOHEXOL 300MG/ML 100 ML INFUS..BTL ONE (11:44)
[2023-08-29] MEDS ORDERED: SWABABLE VALVE TRANSFER SET EA MC ONE (11:45)
[2023-08-29] MEDS ORDERED: IV NORMAL SALINE 250 ML IV ONE (11:45)
[2023-08-29 15:37] VITALS: BP 133/76; TEMP 98.3; O2SAT 97
[2023-08-29] MEDS: SEVELAMER CARBONATE 800 MG TABLET PO SCH (17:11)
[2023-08-29 17:15] VITALS: O2SAT 96
[2023-08-29 20:31] LABS: FREE PSA 0.14 ng/mL (0.00-45); PROSTATE SPECIFIC ANTIGEN 0.62 ng/mL (0.00-4.00)
[2023-08-29 23:43] VITALS: BP 134/76; TEMP 98.5; O2SAT 97
[2023-08-30] MEDS: MORPHINE SULFATE 2 MG/1 ML DISP.SYRIN IVP PRN ×3 (03:11→13:47)
[2023-08-30 05:36] VITALS: BP 131/72; TEMP 98.5; O2SAT 97
[2023-08-30] MEDS: PANTOPRAZOLE SODIUM 40 MG TABLET.DR PO SCH (06:13)
[2023-08-30] MEDS: PIPERACILLIN/TAZO 2.25 G in IV DEXTROSE 5% 50 ML IV SCH ×3 (06:13→22:10)
[2023-08-30] MEDS: levETIRAcetam 250 MG TABLET PO SCH ×2 (09:18→20:26)
[2023-08-30] MEDS: CALCIUM ACETATE 667 MG CAP/TAB PO SCH ×3 (09:18→18:06)
[2023-08-30] MEDS: SEVELAMER CARBONATE 800 MG TABLET PO SCH ×3 (09:18→18:06)
[2023-08-30] MEDS: MULTIVITAMINS,THERAPEUTIC TABLET PO SCH (09:20)
[2023-08-30] MEDS: METOPROLOL TARTRATE 25 MG TABLET PO SCH ×2 (09:20→20:27)
[2023-08-30] MEDS: GABAPENTIN 100 MG CAPSULE PO SCH ×3 (09:20→18:06)
[2023-08-30 10:06] LABS: *IMMUNOGLOBULIN G, SERUM 1149 mg/dL (603-1613); IMMUNOGLOBULIN A, SERUM 76 mg/dL (90-386); IMMUNOGLOBULIN M, SERUM 86 mg/dL (20-172)
[2023-08-30 11:01] VITALS: BP 109/67; TEMP 98.8; O2SAT 92
[2023-08-30 15:05] VITALS: BP 109/58; TEMP 98.2; O2SAT 92
[2023-08-30 15:40] VITALS: O2SAT 93
[2023-08-30 19:41] LABS: *OCCULT BLOOD STOOL NEGATIVE (NEGATIVE)
[2023-08-30 20:00] VITALS: BP 118/67; TEMP 98; O2SAT 93
[2023-08-31] VITALS (7 sets, daily range): BP systolic 108–139; BP diastolic 61–87; TEMP 98–98.4; O2SAT 91–95
[2023-08-31] MEDS: PIPERACILLIN/TAZO 2.25 G in IV DEXTROSE 5% 50 ML IV SCH ×3 (05:31→21:35)
[2023-08-31] MEDS: PANTOPRAZOLE SODIUM 40 MG TABLET.DR PO SCH (06:04)
[2023-08-31] MEDS: levETIRAcetam 250 MG TABLET PO SCH ×2 (08:32→21:35)
[2023-08-31] MEDS: MULTIVITAMINS,THERAPEUTIC TABLET PO SCH (08:32)
[2023-08-31] MEDS: SEVELAMER CARBONATE 800 MG TABLET PO SCH ×3 (08:32→18:13)
[2023-08-31] MEDS: METOPROLOL TARTRATE 25 MG TABLET PO SCH ×2 (08:33→21:34)
[2023-08-31] MEDS: GABAPENTIN 100 MG CAPSULE PO SCH ×3 (08:33→17:34)
[2023-08-31] MEDS: CALCIUM ACETATE 667 MG CAP/TAB PO SCH ×3 (08:33→17:33)
[2023-08-31 11:06] LABS: *ANTI-SCLERODERMA-70 AB <0.2 AI (0.0-0.9); *RNP ANTIBODIES <0.2 AI (0.0-0.9); *SJOGREN'S ANTI-SS-A <0.2 AI (0.0-0.9); *SJOGREN'S ANTI-SS-B <0.2 AI (0.0-0.9); *SMITH ANTIBODIES <0.2 AI (0.0-0.9); ANTI-DNA(DS) AB, QN <1 IU/mL (0-9); ANTI-NUCLEAR AB DIRECT Negative (Negative); CARCINOEMBRYONIC AG (CEA) 3.2 ng/mL (0.0-4.7)
[2023-08-31] MEDS: MORPHINE SULFATE 2 MG/1 ML DISP.SYRIN IVP PRN ×3 (11:50→22:58)
[2023-09-01] VITALS (12 sets, daily range): BP systolic 100–141; BP diastolic 35–78; TEMP 97.7–98.8; O2SAT 91–100
[2023-09-01 03:06] LABS: HEPATITIS B SURFACE AB, QUAL Non Reactive (.); HEPATITIS B SURFACE AG Negative (Negative); HEPATITIS C VIRUS ANTIBODY Non Reactive (Non Reactive)
[2023-09-01] MEDS: PIPERACILLIN/TAZO 2.25 G in IV DEXTROSE 5% 50 ML IV SCH ×3 (06:25→21:52)
[2023-09-01] MEDS: MORPHINE SULFATE 2 MG/1 ML DISP.SYRIN IVP PRN ×2 (06:25→23:44)
[2023-09-01] MEDS: PANTOPRAZOLE SODIUM 40 MG TABLET.DR PO SCH (06:26)
[2023-09-01 07:59] LABS: BASOPHILS # (AUTO) 0.1 K/UL (0.0-0.2); BASOPHILS % (AUTO) 2.5 % (0.0-2.0); EOSINOPHILS # (AUTO) 0.5 K/uL (0.0-0.7); EOSINOPHILS % (AUTO) 11.4 % (0.0-7.0); HEMATOCRIT 28.2 % (36.7-47.1); HEMOGLOBIN 8.8 g/dL (12.5-16.3); LYMPHOCYTES # (AUTO) 0.7 K/uL (0.8-4.8); LYMPHOCYTES % (AUTO) 17.1 % (20.5-51.5); MEAN CORPUSCULAR HEMOGLOBIN 27.9 uug (23.8-33.4); MEAN CORPUSCULAR HGB CONC 31 g/dL (32.5-36.3); MEAN CORPUSCULAR VOLUME 89.6 fL (73.0-96.2); MONOCYTES # (AUTO) 0.6 K/uL (0.1-1.30); MONOCYTES % (AUTO) 13.2 % (0.0-11.0); NEUTROPHILS # (AUTO) 2.4 K/uL (1.8-8.9); NEUTROPHILS % (AUTO) 55.8 % (38.5-71.5); PLATELET COUNT (AUTO) 90 K/uL (152-348); RED BLOOD CELL COUNT(AUTO) 3.15 MIL/uL (4.06-5.63); RED CELL DISTRIBUTION WIDTH 16.3 % (12.1-16.2); WHITE BLOOD COUNT (AUTO) 4.2 K/uL (3.6-10.2)
[2023-09-01] MEDS: CALCIUM ACETATE 667 MG CAP/TAB PO SCH ×3 (08:00→18:00)
[2023-09-01] MEDS: SEVELAMER CARBONATE 800 MG TABLET PO SCH ×3 (08:00→18:00)
[2023-09-01 08:06] LABS: DIFFERENTIAL COMMENT 1
[2023-09-01] MEDS: METOPROLOL TARTRATE 25 MG TABLET PO SCH ×2 (09:00→20:51)
[2023-09-01] MEDS: levETIRAcetam 250 MG TABLET PO SCH ×2 (09:00→20:50)
[2023-09-01] MEDS: GABAPENTIN 100 MG CAPSULE PO SCH ×3 (09:00→16:41)
[2023-09-01] MEDS: MULTIVITAMINS,THERAPEUTIC TABLET PO SCH (09:00)
[2023-09-01 09:01] LABS: ALBUMIN 2.8 g/dL (3.4-5.0); BILIRUBIN,DIRECT 0.2 mg/dL (0.0-0.2); BILIRUBIN,TOTAL 0.4 mg/dL (0.2-1.0); TOTAL PROTEIN, SERUM 6.5 g/dL (6.4-8.2)
[2023-09-01 09:06] LABS: A/G RATIO 1.3 (0.7-1.7); ALBUMIN 3.4 g/dL (2.9-4.4); ALPHA-1-GLOBULIN 0.2 g/dL (0.0-0.4); ALPHA-2-GLOBULIN 0.6 g/dL (0.4-1.0); BETA GLOBULIN 0.7 g/dL (0.7-1.3); GAMMA GLOBULIN 1.1 g/dL (0.4-1.8); GLOBULIN, TOTAL 2.6 g/dL (2.2-3.9); M-SPIKE Not Observed g/dL (Not Observed)
[2023-09-01 10:16] LABS: BILIRUBIN,DIRECT 0.2 mg/dL (0.0-0.2); BILIRUBIN,TOTAL 0.4 mg/dL (0.2-1.0)
[2023-09-01 18:06] LABS: ABG BASE EXCESS -7.7 mmol/L; ABG HCO3 22.3 mmol/L; ABG PH 7.109 (7.350-7.450); ABG PO2 48.6 mmHg (75.0-100.0); ABG SITE RIGHT BRACHIAL; ABG TOTAL HEMOGLOBIN 10.3 G/dL (13.5-18.0); MetHb 0.3 % (0.0-1.5); O2Hb 72.4 % (94.0-97.0); VENT MODE Nasal Cannula
[2023-09-01 18:06] LABS: ABG BASE EXCESS -5.8 mmol/L; ABG HCO3 22.7 mmol/L; ABG PCO2 62.2 mmHg (35.0-45.0); ABG PO2 43.4 mmHg (75.0-100.0); ABG SITE LEFT BRACHIAL; ABG TOTAL HEMOGLOBIN 9.3 G/dL (13.5-18.0); COHb 1.3 % (0.5-1.5); MetHb 0.3 % (0.0-1.5); VENT MODE BIPAP
[2023-09-01 18:06] LABS: ABG BASE EXCESS -6.2 mmol/L; ABG PCO2 47.8 mmHg (35.0-45.0); ABG PH 7.261 (7.350-7.450); ABG PO2 112.7 mmHg (75.0-100.0); ABG SITE RIGHT BRACHIAL; VENT MODE BIPAP
[2023-09-01] MEDS: REMEDY ESSENTIAL ZINC PASTE 113 GM TOP SCH (20:54)
[2023-09-01] MEDS: diphenhydrAMINE 25 MG CAP PO PRN (23:44)
[2023-09-02] VITALS (29 sets, daily range): BP systolic 110–201; BP diastolic 48–138; TEMP 97–98.4; O2SAT 88–100
[2023-09-02 04:58] LABS: BASOPHILS # (AUTO) 0.1 K/UL (0.0-0.2); BASOPHILS % (AUTO) 2.7 % (0.0-2.0); EOSINOPHILS # (AUTO) 0.5 K/uL (0.0-0.7); EOSINOPHILS % (AUTO) 12.1 % (0.0-7.0); HEMATOCRIT 28.2 % (36.7-47.1); HEMOGLOBIN 9.1 g/dL (12.5-16.3); LYMPHOCYTES # (AUTO) 0.7 K/uL (0.8-4.8); LYMPHOCYTES % (AUTO) 18.6 % (20.5-51.5); MEAN CORPUSCULAR HEMOGLOBIN 28.1 uug (23.8-33.4); MEAN CORPUSCULAR HGB CONC 32 g/dL (32.5-36.3); MEAN CORPUSCULAR VOLUME 87.3 fL (73.0-96.2); MONOCYTES # (AUTO) 0.4 K/uL (0.1-1.30); MONOCYTES % (AUTO) 11.9 % (0.0-11.0); NEUTROPHILS # (AUTO) 2.1 K/uL (1.8-8.9); NEUTROPHILS % (AUTO) 54.7 % (38.5-71.5); PLATELET COUNT (AUTO) 88 K/uL (152-348); RED BLOOD CELL COUNT(AUTO) 3.23 MIL/uL (4.06-5.63); RED CELL DISTRIBUTION WIDTH 16.1 % (12.1-16.2); WHITE BLOOD COUNT (AUTO) 3.8 K/uL (3.6-10.2)
[2023-09-02] MEDS: PIPERACILLIN/TAZO 2.25 G in IV DEXTROSE 5% 50 ML IV SCH ×3 (05:15→22:00)
[2023-09-02 05:20] LABS: CALCIUM 8.7 mg/dL (8.5-10.1); MAGNESIUM 2.1 mg/dL (1.8-2.4); PHOSPHOROUS 7.8 mg/dL (2.5-4.9); POTASSIUM 4.9 mmol/L (3.5-5.1)
[2023-09-02] MEDS: MORPHINE SULFATE 2 MG/1 ML DISP.SYRIN IVP PRN (05:21)
[2023-09-02 05:29] LABS: CREATININE 7.6 mg/dL (0.6-1.3)
[2023-09-02 05:30] LABS: DIFFERENTIAL COMMENT 1
[2023-09-02] MEDS: PANTOPRAZOLE SODIUM 40 MG TABLET.DR PO SCH (06:11)
[2023-09-02 06:16] LABS: ANISOCYTOSIS 1+; EOSINOPHILS % (MANUAL) 15 % (0-8); LYMPHOCYTES % (MANUAL) 17 % (20-40); MONOCYTES % (MANUAL) 7 % (2-10); NEUTROPHILS % (MANUAL) 61 % (42-75); PLATELET ESTIMATE MARKED DECREASED
[2023-09-02] MEDS ORDERED: NOREPINEPHRINE BITARTRATE 32 MG in IV NORMAL SALINE 218 ML IV PRN ×2 (07:30→08:00)
[2023-09-02] MEDS: PROPOFOL 100 ML IV PRN ×6 (08:14→23:11)
[2023-09-02] MEDS ORDERED: MIDAZOLAM HCL 50 MG in IV NORMAL SALINE 40 ML IV PRN (08:30)
[2023-09-02] MEDS: GABAPENTIN 100 MG CAPSULE PO SCH ×3 (09:08→17:22)
[2023-09-02] MEDS: METOPROLOL TARTRATE 25 MG TABLET PO SCH ×2 (09:08→20:29)
[2023-09-02] MEDS: MULTIVITAMINS,THERAPEUTIC TABLET PO SCH (09:08)
[2023-09-02] MEDS: CALCIUM ACETATE 667 MG CAP/TAB PO SCH ×3 (09:08→17:22)
[2023-09-02] MEDS: REMEDY ESSENTIAL ZINC PASTE 113 GM TOP SCH ×2 (09:09→20:29)
[2023-09-02 09:36] LABS: ABG BASE EXCESS -7.7 mmol/L; ABG HCO3 21.2 mmol/L; ABG PCO2 61.4 mmHg (35.0-45.0); ABG PH 7.157 (7.350-7.450); ABG PO2 49.6 mmHg (75.0-100.0); ABG SITE RIGHT RADIAL; ABG TOTAL HEMOGLOBIN 10.3 G/dL (13.5-18.0); COHb 1.1 % (0.5-1.5); MetHb 0.3 % (0.0-1.5); O2Hb 75.2 % (94.0-97.0); VENT MODE Mask - Venturi
[2023-09-02] MEDS: levETIRAcetam 250 MG TABLET PO SCH ×2 (10:27→20:28)
[2023-09-02] MEDS: SEVELAMER CARBONATE 800 MG TABLET PO SCH ×3 (10:28→17:22)
[2023-09-02] MEDS ORDERED: NOREPINEPHRINE BITARTRATE 8 MG in IV NORMAL SALINE 242 ML IV PRN (16:45)
[2023-09-03] VITALS (28 sets, daily range): BP systolic 103–195; BP diastolic 38–78; TEMP 97–98.4; O2SAT 96–100
[2023-09-03] MEDS: MORPHINE SULFATE 2 MG/1 ML DISP.SYRIN IVP PRN ×2 (00:07→14:52)
[2023-09-03] MEDS: hydrALAZINE HCL 20 MG/1 ML VIAL IV PRN ×4 (00:08→22:36)
[2023-09-03] MEDS ORDERED: DEXTROSE 50% 50 ML DISP.SYRIN IV ONE (01:00)
[2023-09-03] MEDS ORDERED: DEXTROSE 50% 50 ML DISP.SYRIN ONE (01:05)
[2023-09-03 01:06] LABS: *BLOOD, URINE 3+ (NEGATIVE); *KETONES,URINE NEGATIVE (NEGATIVE); *UROBILINOGEN,URINE 0.2 E.U./dl (NORMAL); LEUKOCYTE ESTERASE ,URINE 3+ (NEGATIVE); NITRITE, URINE NEGATIVE (NEGATIVE); PH,URINE 8.5 (5.0-8.0); UGLUCOSE TRACE (NEGATIVE)
[2023-09-03 01:17] LABS: *BILIRUBIN,URIN 1+ (NEGATIVE); *PROTEIN,URINE 3+ (NEGATIVE)
[2023-09-03 01:18] LABS: *CLARITY,URINE TURBID (CLEAR); *COLOR,URINE AMBER (YELLOW)
[2023-09-03 02:17] LABS: RBC,URINE TNTC /HPF (0-3); WBC,URINE TNTC /HPF (0-3)
[2023-09-03 02:18] LABS: BACTERIA,URINE MANY /HPF (NONE SEEN); SQUAMOUS EPITHELIAL CELL,UR NONE SEEN /HPF (NONE SEEN)
[2023-09-03] MEDS: PROPOFOL 100 ML IV PRN ×5 (04:10→20:32)
[2023-09-03 04:33] LABS: BASOPHILS # (AUTO) 0.1 K/UL (0.0-0.2); EOSINOPHILS # (AUTO) 0.4 K/uL (0.0-0.7); HEMATOCRIT 26.8 % (36.7-47.1); LYMPHOCYTES # (AUTO) 0.6 K/uL (0.8-4.8); MEAN CORPUSCULAR HEMOGLOBIN 28.2 uug (23.8-33.4); MEAN CORPUSCULAR HGB CONC 34 g/dL (32.5-36.3); MONOCYTES # (AUTO) 0.5 K/uL (0.1-1.30); MONOCYTES % (AUTO) 12.9 % (0.0-11.0); NEUTROPHILS # (AUTO) 1.9 K/uL (1.8-8.9); NEUTROPHILS % (AUTO) 54.6 % (38.5-71.5); PLATELET COUNT (AUTO) 95 K/uL (152-348); RED BLOOD CELL COUNT(AUTO) 3.19 MIL/uL (4.06-5.63); RED CELL DISTRIBUTION WIDTH 16.1 % (12.1-16.2); WHITE BLOOD COUNT (AUTO) 3.5 K/uL (3.6-10.2)
[2023-09-03 04:51] LABS: CALCIUM 8.5 mg/dL (8.5-10.1); CREATININE 5.9 mg/dL (0.6-1.3); MAGNESIUM 1.9 mg/dL (1.8-2.4); PHOSPHOROUS 5.3 mg/dL (2.5-4.9); POTASSIUM 3.5 mmol/L (3.5-5.1)
[2023-09-03 04:53] LABS: DIFFERENTIAL COMMENT 1; EOSINOPHILS % (AUTO) 10.7 % (0.0-7.0); LYMPHOCYTES % (AUTO) 18.8 % (20.5-51.5)
[2023-09-03] MEDS: PIPERACILLIN/TAZO 2.25 G in IV DEXTROSE 5% 50 ML IV SCH ×3 (05:38→21:10)
[2023-09-03] MEDS: PANTOPRAZOLE SODIUM 40 MG TABLET.DR PO SCH (06:01)
[2023-09-03 06:30] LABS: ABG BASE EXCESS 0.2 mmol/L; ABG PCO2 30.3 mmHg (35.0-45.0); ABG PH 7.498 (7.350-7.450); ABG PO2 76.2 mmHg (75.0-100.0); ABG SITE LEFT BRACHIAL; ABG TOTAL HEMOGLOBIN 9.5 G/dL (13.5-18.0); COHb 0.4 % (0.5-1.5); MetHb 0.3 % (0.0-1.5); O2Hb 94.3 % (94.0-97.0); VENT MODE VENT - A/C; VT, ABG 450 mL
[2023-09-03] MEDS: SEVELAMER CARBONATE 800 MG TABLET PO SCH ×3 (07:22→17:04)
[2023-09-03] MEDS: CALCIUM ACETATE 667 MG CAP/TAB PO SCH ×3 (07:22→17:04)
[2023-09-03] MEDS: MULTIVITAMINS,THERAPEUTIC TABLET PO SCH (08:02)
[2023-09-03] MEDS: GABAPENTIN 100 MG CAPSULE PO SCH ×3 (08:02→16:15)
[2023-09-03] MEDS: levETIRAcetam 250 MG TABLET PO SCH ×2 (08:02→21:10)
[2023-09-03] MEDS: REMEDY ESSENTIAL ZINC PASTE 113 GM TOP SCH ×2 (08:03→21:11)
[2023-09-03] MEDS: METOPROLOL TARTRATE 25 MG TABLET PO SCH ×2 (08:25→21:11)
[2023-09-03] MEDS ORDERED: NEPRO 1000 ML GT STA (09:41)
[2023-09-03] MEDS: CLOTRIMAZOLE 1% CREAM 30 GM TUBE TOP SCH (16:15)
[2023-09-04] VITALS (34 sets, daily range): BP systolic 102–186; BP diastolic 38–61; TEMP 97–98; O2SAT 92–100
[2023-09-04] MEDS: PROPOFOL 100 ML IV PRN (01:12)
[2023-09-04 04:32] LABS: BASOPHILS # (AUTO) 0.1 K/UL (0.0-0.2); BASOPHILS % (AUTO) 1.3 % (0.0-2.0); EOSINOPHILS # (AUTO) 0.4 K/uL (0.0-0.7); EOSINOPHILS % (AUTO) 9.6 % (0.0-7.0); HEMATOCRIT 28.7 % (36.7-47.1); HEMOGLOBIN 9.4 g/dL (12.5-16.3); LYMPHOCYTES # (AUTO) 0.6 K/uL (0.8-4.8); LYMPHOCYTES % (AUTO) 16.3 % (20.5-51.5); MEAN CORPUSCULAR HEMOGLOBIN 27.7 uug (23.8-33.4); MEAN CORPUSCULAR HGB CONC 33 g/dL (32.5-36.3); MEAN CORPUSCULAR VOLUME 84.9 fL (73.0-96.2); MONOCYTES # (AUTO) 0.4 K/uL (0.1-1.30); MONOCYTES % (AUTO) 11.1 % (0.0-11.0); NEUTROPHILS # (AUTO) 2.4 K/uL (1.8-8.9); NEUTROPHILS % (AUTO) 61.7 % (38.5-71.5); PLATELET COUNT (AUTO) 94 K/uL (152-348); RED BLOOD CELL COUNT(AUTO) 3.38 MIL/uL (4.06-5.63); WHITE BLOOD COUNT (AUTO) 3.9 K/uL (3.6-10.2)
[2023-09-04 04:43] LABS: DIFFERENTIAL COMMENT 1
[2023-09-04 04:46] LABS: CALCIUM 8.6 mg/dL (8.5-10.1); CREATININE 4.8 mg/dL (0.6-1.3); MAGNESIUM 1.8 mg/dL (1.8-2.4); PHOSPHOROUS 5.1 mg/dL (2.5-4.9); POTASSIUM 3.5 mmol/L (3.5-5.1)
[2023-09-04 05:21] LABS: ANISOCYTOSIS 1+; EOSINOPHILS % (MANUAL) 9 % (0-8); LYMPHOCYTES % (MANUAL) 16 % (20-40); MONOCYTES % (MANUAL) 8 % (2-10); NEUTROPHILS % (MANUAL) 67 % (42-75); PLATELET ESTIMATE DECREASED
[2023-09-04 06:39] LABS: ABG BASE EXCESS 0.8 mmol/L; ABG HCO3 26.3 mmol/L; ABG PCO2 45.4 mmHg (35.0-45.0); ABG PO2 132.4 mmHg (75.0-100.0); ABG SITE RIGHT BRACHIAL; ABG TOTAL HEMOGLOBIN 10.9 G/dL (13.5-18.0); COHb 0.7 % (0.5-1.5); MetHb 0.3 % (0.0-1.5); O2Hb 97.1 % (94.0-97.0)
[2023-09-04] MEDS: PANTOPRAZOLE SODIUM 40 MG TABLET.DR PO SCH (06:52)
[2023-09-04] MEDS: PIPERACILLIN/TAZO 2.25 G in IV DEXTROSE 5% 50 ML IV SCH ×3 (06:52→21:48)
[2023-09-04] MEDS: MORPHINE SULFATE 2 MG/1 ML DISP.SYRIN IVP PRN ×3 (07:10→21:49)
[2023-09-04] MEDS: ONDANSETRON 4 MG/2 ML VIAL IV PRN ×2 (07:10→21:49)
[2023-09-04] MEDS: SEVELAMER CARBONATE 800 MG TABLET PO SCH ×3 (07:59→17:28)
[2023-09-04] MEDS: CALCIUM ACETATE 667 MG CAP/TAB PO SCH ×3 (07:59→17:29)
[2023-09-04] MEDS: levETIRAcetam 250 MG TABLET PO SCH ×2 (08:58→21:48)
[2023-09-04] MEDS: GABAPENTIN 100 MG CAPSULE PO SCH ×3 (08:59→17:26)
[2023-09-04] MEDS: METOPROLOL TARTRATE 25 MG TABLET PO SCH ×2 (08:59→21:49)
[2023-09-04] MEDS: CLOTRIMAZOLE 1% CREAM 30 GM TUBE TOP SCH ×2 (09:00→17:26)
[2023-09-04] MEDS: MULTIVITAMINS,THERAPEUTIC TABLET PO SCH (09:00)
[2023-09-04] MEDS: REMEDY ESSENTIAL ZINC PASTE 113 GM TOP SCH ×2 (09:00→21:50)
[2023-09-04] MEDS: HALOPERIDOL LACTATE 5 MG/1 ML VIAL IM PRN (12:58)
[2023-09-04] MEDS: LORAZEPAM 2 MG/1 ML VIAL IV PRN (23:18)
[2023-09-05] VITALS (24 sets, daily range): BP systolic 96–190; BP diastolic 20–60; TEMP 97.1–98; O2SAT 92–100
[2023-09-05] MEDS ORDERED: ETOMIDATE 20 MG/10 ML VIAL ONE (04:00)
[2023-09-05] MEDS ORDERED: SUCCINYLCHOLINE CHLORIDE 200 MG/10 ML VIAL ONE (04:00)
[2023-09-05 04:34] LABS: BASOPHILS # (AUTO) 0.1 K/UL (0.0-0.2); BASOPHILS % (AUTO) 1.2 % (0.0-2.0); EOSINOPHILS # (AUTO) 0.4 K/uL (0.0-0.7); EOSINOPHILS % (AUTO) 9.7 % (0.0-7.0); HEMATOCRIT 28.2 % (36.7-47.1); LYMPHOCYTES # (AUTO) 0.7 K/uL (0.8-4.8); LYMPHOCYTES % (AUTO) 15.1 % (20.5-51.5); MEAN CORPUSCULAR HEMOGLOBIN 28.2 uug (23.8-33.4); MEAN CORPUSCULAR HGB CONC 32 g/dL (32.5-36.3); MEAN CORPUSCULAR VOLUME 88.3 fL (73.0-96.2); MONOCYTES # (AUTO) 0.5 K/uL (0.1-1.30); NEUTROPHILS # (AUTO) 2.9 K/uL (1.8-8.9); PLATELET COUNT (AUTO) 91 K/uL (152-348); RED BLOOD CELL COUNT(AUTO) 3.19 MIL/uL (4.06-5.63); RED CELL DISTRIBUTION WIDTH 16.6 % (12.1-16.2); WHITE BLOOD COUNT (AUTO) 4.6 K/uL (3.6-10.2)
[2023-09-05 04:43] LABS: DIFFERENTIAL COMMENT 1
[2023-09-05 05:12] LABS: CALCIUM 8.4 mg/dL (8.5-10.1); CREATININE 6.3 mg/dL (0.6-1.3); MAGNESIUM 2.2 mg/dL (1.8-2.4); POTASSIUM 4.2 mmol/L (3.5-5.1)
[2023-09-05 05:35] LABS: ANISOCYTOSIS 1+; EOSINOPHILS % (MANUAL) 10 % (0-8); LYMPHOCYTES % (MANUAL) 15 % (20-40); MONOCYTES % (MANUAL) 7 % (2-10); NEUTROPHILS % (MANUAL) 68 % (42-75); PLATELET ESTIMATE MARKED DECREASED
[2023-09-05] MEDS: PIPERACILLIN/TAZO 2.25 G in IV DEXTROSE 5% 50 ML IV SCH ×3 (06:40→22:36)
[2023-09-05] MEDS: PANTOPRAZOLE SODIUM 40 MG TABLET.DR PO SCH (06:41)
[2023-09-05] MEDS: SEVELAMER CARBONATE 800 MG TABLET PO SCH ×3 (08:13→17:11)
[2023-09-05] MEDS: GABAPENTIN 100 MG CAPSULE PO SCH ×3 (08:16→17:10)
[2023-09-05] MEDS: CALCIUM ACETATE 667 MG CAP/TAB PO SCH ×3 (08:16→17:10)
[2023-09-05] MEDS: CLOTRIMAZOLE 1% CREAM 30 GM TUBE TOP SCH ×2 (08:17→17:09)
[2023-09-05] MEDS: METOPROLOL TARTRATE 25 MG TABLET PO SCH ×2 (08:17→23:06)
[2023-09-05] MEDS: MULTIVITAMINS,THERAPEUTIC TABLET PO SCH (08:17)
[2023-09-05] MEDS: REMEDY ESSENTIAL ZINC PASTE 113 GM TOP SCH ×2 (08:18→22:37)
[2023-09-05] MEDS: levETIRAcetam 250 MG TABLET PO SCH ×2 (08:22→23:06)
[2023-09-05] MEDS: LORAZEPAM 2 MG/1 ML VIAL IV PRN (09:03)
[2023-09-05 09:11] LABS: CALCIUM 8.5 mg/dL (8.5-10.1); CREATININE 6.5 mg/dL (0.6-1.3); POTASSIUM 4.2 mmol/L (3.5-5.1)
[2023-09-05] MEDS: HALOPERIDOL LACTATE 5 MG/1 ML VIAL IM PRN (11:13)
[2023-09-05 21:19] LABS: ABG BASE EXCESS 2.4 mmol/L; ABG HCO3 23.9 mmol/L; ABG PH 7.565 (7.350-7.450); ABG PO2 193.1 mmHg (75.0-100.0); ABG SITE LEFT RADIAL; ABG TOTAL HEMOGLOBIN 10.1 G/dL (13.5-18.0); COHb 0.3 % (0.5-1.5); MetHb 0.3 % (0.0-1.5); O2Hb 98.4 % (94.0-97.0); VENT MODE VENT - A/C; VT, ABG 500 mL
[2023-09-05] MEDS: PROPOFOL 100 ML IV PRN (21:58)
[2023-09-05] MEDS: hydrALAZINE HCL 20 MG/1 ML VIAL IV PRN (23:06)
[2023-09-06] VITALS (28 sets, daily range): BP systolic 109–191; BP diastolic 30–65; TEMP 96.5–97.8; O2SAT 98–100
[2023-09-06] MEDS: PROPOFOL 100 ML IV PRN ×5 (00:28→20:20)
[2023-09-06] MEDS: IV NORMAL SALINE 250 ML IV PRN (02:34)
[2023-09-06] MEDS: hydrALAZINE HCL 20 MG/1 ML VIAL IV PRN ×2 (03:42→07:39)
[2023-09-06 04:45] LABS: BASOPHILS # (AUTO) 0.1 K/UL (0.0-0.2); BASOPHILS % (AUTO) 1.1 % (0.0-2.0); EOSINOPHILS # (AUTO) 0.3 K/uL (0.0-0.7); EOSINOPHILS % (AUTO) 6.6 % (0.0-7.0); HEMATOCRIT 28.1 % (36.7-47.1); HEMOGLOBIN 9.3 g/dL (12.5-16.3); LYMPHOCYTES # (AUTO) 0.8 K/uL (0.8-4.8); LYMPHOCYTES % (AUTO) 16.7 % (20.5-51.5); MEAN CORPUSCULAR HEMOGLOBIN 28.2 uug (23.8-33.4); MEAN CORPUSCULAR HGB CONC 33 g/dL (32.5-36.3); MEAN CORPUSCULAR VOLUME 85.3 fL (73.0-96.2); MONOCYTES # (AUTO) 0.5 K/uL (0.1-1.30); MONOCYTES % (AUTO) 10.7 % (0.0-11.0); NEUTROPHILS # (AUTO) 3.2 K/uL (1.8-8.9); NEUTROPHILS % (AUTO) 64.9 % (38.5-71.5); PLATELET COUNT (AUTO) 87 K/uL (152-348); RED BLOOD CELL COUNT(AUTO) 3.29 MIL/uL (4.06-5.63); WHITE BLOOD COUNT (AUTO) 4.9 K/uL (3.6-10.2)
[2023-09-06 05:12] LABS: DIFFERENTIAL COMMENT 1
[2023-09-06 05:20] LABS: CALCIUM 8.1 mg/dL (8.5-10.1); CREATININE 5.2 mg/dL (0.6-1.3); POTASSIUM 3.2 mmol/L (3.5-5.1)
[2023-09-06] MEDS: PIPERACILLIN/TAZO 2.25 G in IV DEXTROSE 5% 50 ML IV SCH ×3 (05:27→21:07)
[2023-09-06] MEDS: PANTOPRAZOLE SODIUM 40 MG TABLET.DR PO SCH (05:28)
[2023-09-06 05:40] LABS: MAGNESIUM 1.9 mg/dL (1.8-2.4); PHOSPHOROUS 5.1 mg/dL (2.5-4.9)
[2023-09-06 06:25] LABS: ANISOCYTOSIS 1+; EOSINOPHILS % (MANUAL) 4 % (0-8); HYPOCHROMASIA 1+; LYMPHOCYTES % (MANUAL) 10 % (20-40); MONOCYTES % (MANUAL) 6 % (2-10); NEUTROPHILS % (MANUAL) 80 % (42-75); PLATELET ESTIMATE MARKED DECREASED
[2023-09-06] MEDS: MORPHINE SULFATE 2 MG/1 ML DISP.SYRIN IVP PRN (07:14)
[2023-09-06 07:32] LABS: ABG BASE EXCESS 0.5 mmol/L; ABG HCO3 22.6 mmol/L; ABG PCO2 28.1 mmHg (35.0-45.0); ABG PH 7.524 (7.350-7.450); ABG PO2 54.6 mmHg (75.0-100.0); ABG SITE RIGHT RADIAL; ABG TOTAL HEMOGLOBIN 10.2 G/dL (13.5-18.0); COHb 0.5 % (0.5-1.5); MetHb 0.3 % (0.0-1.5); O2Hb 89.9 % (94.0-97.0); VENT MODE VENT - A/C; VT, ABG 500 mL
[2023-09-06] MEDS: CALCIUM ACETATE 667 MG CAP/TAB PO SCH ×3 (08:00→17:57)
[2023-09-06] MEDS: SEVELAMER CARBONATE 800 MG TABLET PO SCH ×2 (08:00→12:00)
[2023-09-06] MEDS: METOPROLOL TARTRATE 25 MG TABLET PO SCH ×2 (08:08→20:23)
[2023-09-06] MEDS: CLOTRIMAZOLE 1% CREAM 30 GM TUBE TOP SCH ×2 (08:08→17:56)
[2023-09-06] MEDS: MULTIVITAMINS,THERAPEUTIC TABLET PO SCH (08:08)
[2023-09-06] MEDS: GABAPENTIN 100 MG CAPSULE PO SCH ×3 (08:08→17:56)
[2023-09-06] MEDS: REMEDY ESSENTIAL ZINC PASTE 113 GM TOP SCH ×2 (08:09→20:22)
[2023-09-06] MEDS: levETIRAcetam 250 MG TABLET PO SCH ×2 (08:11→20:23)
[2023-09-06] MEDS: QUETIAPINE FUMARATE 25 MG TABLET NG SCH ×2 (15:22→17:56)
[2023-09-06] MEDS: SEVELAMER CARBONATE 800 MG POWD.PACK PO SCH (17:57)
[2023-09-07] VITALS (30 sets, daily range): BP systolic 113–174; BP diastolic 30–90; TEMP 97.2–97.8; O2SAT 99–100
[2023-09-07] MEDS: hydrALAZINE HCL 20 MG/1 ML VIAL IV PRN ×3 (02:01→17:39)
[2023-09-07] MEDS: PROPOFOL 100 ML IV PRN ×5 (02:01→21:20)
[2023-09-07 05:15] LABS: BASOPHILS # (AUTO) 0.1 K/UL (0.0-0.2); BASOPHILS % (AUTO) 1.3 % (0.0-2.0); EOSINOPHILS # (AUTO) 0.5 K/uL (0.0-0.7); EOSINOPHILS % (AUTO) 11.1 % (0.0-7.0); HEMATOCRIT 28.9 % (36.7-47.1); HEMOGLOBIN 9.5 g/dL (12.5-16.3); LYMPHOCYTES # (AUTO) 0.8 K/uL (0.8-4.8); LYMPHOCYTES % (AUTO) 18.9 % (20.5-51.5); MEAN CORPUSCULAR HEMOGLOBIN 27.9 uug (23.8-33.4); MEAN CORPUSCULAR HGB CONC 33 g/dL (32.5-36.3); MEAN CORPUSCULAR VOLUME 84.7 fL (73.0-96.2); MONOCYTES # (AUTO) 0.4 K/uL (0.1-1.30); MONOCYTES % (AUTO) 10.6 % (0.0-11.0); NEUTROPHILS # (AUTO) 2.4 K/uL (1.8-8.9); NEUTROPHILS % (AUTO) 58.1 % (38.5-71.5); PLATELET COUNT (AUTO) 102 K/uL (152-348); RED BLOOD CELL COUNT(AUTO) 3.41 MIL/uL (4.06-5.63); RED CELL DISTRIBUTION WIDTH 16.1 % (12.1-16.2); WHITE BLOOD COUNT (AUTO) 4.2 K/uL (3.6-10.2)
[2023-09-07 05:22] LABS: CALCIUM 8.6 mg/dL (8.5-10.1); CREATININE 5.2 mg/dL (0.6-1.3); POTASSIUM 3.4 mmol/L (3.5-5.1)
[2023-09-07 05:26] LABS: MAGNESIUM 1.8 mg/dL (1.8-2.4); PHOSPHOROUS 5.2 mg/dL (2.5-4.9)
[2023-09-07 05:34] LABS: DIFFERENTIAL COMMENT 1
[2023-09-07] MEDS: PIPERACILLIN/TAZO 2.25 G in IV DEXTROSE 5% 50 ML IV SCH ×3 (05:41→21:19)
[2023-09-07] MEDS: PANTOPRAZOLE SODIUM 40 MG TABLET.DR PO SCH (06:06)
[2023-09-07 06:14] LABS: ABG BASE EXCESS 0.9 mmol/L; ABG HCO3 23.3 mmol/L; ABG PCO2 29.8 mmHg (35.0-45.0); ABG PH 7.511 (7.350-7.450); ABG PO2 87.1 mmHg (75.0-100.0); ABG SITE LEFT BRACHIAL; ABG TOTAL HEMOGLOBIN 10.6 G/dL (13.5-18.0); COHb 0.2 % (0.5-1.5); MetHb 0.3 % (0.0-1.5); O2Hb 95.9 % (94.0-97.0); VENT MODE VENT - A/C; VT, ABG 500 mL
[2023-09-07] MEDS: CALCIUM ACETATE 667 MG CAP/TAB PO SCH ×3 (08:00→17:03)
[2023-09-07] MEDS: SEVELAMER CARBONATE 800 MG POWD.PACK PO SCH ×3 (08:00→17:04)
[2023-09-07] MEDS: MULTIVITAMINS,THERAPEUTIC TABLET PO SCH (08:36)
[2023-09-07] MEDS: GABAPENTIN 100 MG CAPSULE PO SCH ×3 (08:37→17:03)
[2023-09-07] MEDS: QUETIAPINE FUMARATE 25 MG TABLET NG SCH ×2 (08:37→17:03)
[2023-09-07] MEDS: levETIRAcetam 250 MG TABLET PO SCH ×2 (08:38→21:18)
[2023-09-07] MEDS: METOPROLOL TARTRATE 25 MG TABLET PO SCH (08:38)
[2023-09-07] MEDS: CLOTRIMAZOLE 1% CREAM 30 GM TUBE TOP SCH ×2 (08:38→17:04)
[2023-09-07] MEDS: REMEDY ESSENTIAL ZINC PASTE 113 GM TOP SCH ×2 (08:39→21:19)
[2023-09-07] MEDS ORDERED: POTASSIUM CHLORIDE 20 MEQ POWDER PACKET GT ONE (08:45)
[2023-09-07] MEDS: AMLODIPINE 5 MG TABLET PO SCH (09:05)
[2023-09-07] MEDS: ASPIRIN 81 MG TAB.CHEW PO SCH (09:30)
[2023-09-07] MEDS: NEPRO 1000 ML GT PRN (13:09)
[2023-09-07] MEDS ORDERED: IV NORMAL SALINE 250 ML IV ONE (19:30)
[2023-09-07] MEDS ORDERED: IOHEXOL 350 100 ML INFUS..BTL ONE (19:30)
[2023-09-07] MEDS ORDERED: SWABABLE VALVE TRANSFER SET EA MC ONE (19:30)
[2023-09-08] VITALS (24 sets, daily range): BP systolic 111–171; BP diastolic 29–70; TEMP 97–97.8; O2SAT 100
[2023-09-08] MEDS: PROPOFOL 100 ML IV PRN ×6 (01:33→21:10)
[2023-09-08 05:15] LABS: BASOPHILS # (AUTO) 0.1 K/UL (0.0-0.2); BASOPHILS % (AUTO) 2.1 % (0.0-2.0); EOSINOPHILS # (AUTO) 0.5 K/uL (0.0-0.7); EOSINOPHILS % (AUTO) 11.9 % (0.0-7.0); HEMATOCRIT 29.9 % (36.7-47.1); HEMOGLOBIN 10.1 g/dL (12.5-16.3); LYMPHOCYTES # (AUTO) 0.8 K/uL (0.8-4.8); LYMPHOCYTES % (AUTO) 18.1 % (20.5-51.5); MEAN CORPUSCULAR HEMOGLOBIN 28.5 uug (23.8-33.4); MEAN CORPUSCULAR HGB CONC 34 g/dL (32.5-36.3); MEAN CORPUSCULAR VOLUME 84.6 fL (73.0-96.2); MONOCYTES # (AUTO) 0.5 K/uL (0.1-1.30); MONOCYTES % (AUTO) 10.9 % (0.0-11.0); NEUTROPHILS # (AUTO) 2.4 K/uL (1.8-8.9); PLATELET COUNT (AUTO) 103 K/uL (152-348); RED BLOOD CELL COUNT(AUTO) 3.53 MIL/uL (4.06-5.63); RED CELL DISTRIBUTION WIDTH 16.2 % (12.1-16.2); WHITE BLOOD COUNT (AUTO) 4.2 K/uL (3.6-10.2)
[2023-09-08 05:16] LABS: DIFFERENTIAL COMMENT 1
[2023-09-08 05:19] LABS: CALCIUM 8.5 mg/dL (8.5-10.1); CREATININE 4.8 mg/dL (0.6-1.3); POTASSIUM 3.7 mmol/L (3.5-5.1)
[2023-09-08 05:24] LABS: MAGNESIUM 1.9 mg/dL (1.8-2.4); PHOSPHOROUS 5.2 mg/dL (2.5-4.9)
[2023-09-08] MEDS: PIPERACILLIN/TAZO 2.25 G in IV DEXTROSE 5% 50 ML IV SCH ×3 (05:24→21:12)
[2023-09-08 06:43] LABS: ABG BASE EXCESS 1.4 mmol/L; ABG HCO3 24.1 mmol/L; ABG PCO2 31.8 mmHg (35.0-45.0); ABG PH 7.498 (7.350-7.450); ABG PO2 147.9 mmHg (75.0-100.0); ABG SITE LEFT RADIAL; ABG TOTAL HEMOGLOBIN 10.8 G/dL (13.5-18.0); COHb 0.1 % (0.5-1.5); MetHb 0.3 % (0.0-1.5); O2Hb 98.1 % (94.0-97.0); VENT MODE VENT - A/C; VT, ABG 500 mL
[2023-09-08] MEDS: PANTOPRAZOLE ORAL SUSPENSION 40 MG SUSPDR.PKT NG SCH (07:01)
[2023-09-08] MEDS: CALCIUM ACETATE 667 MG CAP/TAB PO SCH ×3 (08:03→18:12)
[2023-09-08] MEDS: AMLODIPINE 5 MG TABLET PO SCH (08:04)
[2023-09-08] MEDS: ASPIRIN 81 MG TAB.CHEW PO SCH (08:04)
[2023-09-08] MEDS: QUETIAPINE FUMARATE 25 MG TABLET NG SCH ×2 (08:04→18:15)
[2023-09-08] MEDS: CLOTRIMAZOLE 1% CREAM 30 GM TUBE TOP SCH ×2 (08:04→18:13)
[2023-09-08] MEDS: MULTIVITAMINS,THERAPEUTIC TABLET PO SCH (08:04)
[2023-09-08] MEDS: GABAPENTIN 100 MG CAPSULE PO SCH ×3 (08:04→18:12)
[2023-09-08] MEDS: REMEDY ESSENTIAL ZINC PASTE 113 GM TOP SCH ×2 (08:05→21:13)
[2023-09-08] MEDS: levETIRAcetam 250 MG TABLET PO SCH ×2 (08:06→21:12)
[2023-09-08] MEDS: SEVELAMER CARBONATE 800 MG POWD.PACK PO SCH ×3 (08:06→18:14)
[2023-09-08] MEDS: hydrALAZINE HCL 20 MG/1 ML VIAL IV PRN (08:50)
[2023-09-08 11:49] LABS: ALBUMIN 2.3 g/dL (3.4-5.0); BILIRUBIN,DIRECT 0.2 mg/dL (0.0-0.2); BILIRUBIN,TOTAL 0.5 mg/dL (0.2-1.0); TOTAL PROTEIN, SERUM 5.9 g/dL (6.4-8.2)
[2023-09-09] VITALS (24 sets, daily range): BP systolic 108–151; BP diastolic 24–59; TEMP 97–97.8; O2SAT 100
[2023-09-09] MEDS: PROPOFOL 100 ML IV PRN ×6 (00:36→20:02)
[2023-09-09] MEDS: PIPERACILLIN/TAZO 2.25 G in IV DEXTROSE 5% 50 ML IV SCH ×3 (05:00→21:15)
[2023-09-09 05:08] LABS: BASOPHILS # (AUTO) 0.1 K/UL (0.0-0.2); BASOPHILS % (AUTO) 1.4 % (0.0-2.0); EOSINOPHILS # (AUTO) 0.5 K/uL (0.0-0.7); EOSINOPHILS % (AUTO) 9.9 % (0.0-7.0); HEMATOCRIT 31.6 % (36.7-47.1); HEMOGLOBIN 10.5 g/dL (12.5-16.3); LYMPHOCYTES # (AUTO) 0.8 K/uL (0.8-4.8); LYMPHOCYTES % (AUTO) 17.4 % (20.5-51.5); MEAN CORPUSCULAR HEMOGLOBIN 27.9 uug (23.8-33.4); MEAN CORPUSCULAR HGB CONC 33 g/dL (32.5-36.3); MEAN CORPUSCULAR VOLUME 84.1 fL (73.0-96.2); MONOCYTES # (AUTO) 0.5 K/uL (0.1-1.30); MONOCYTES % (AUTO) 10.4 % (0.0-11.0); NEUTROPHILS # (AUTO) 2.8 K/uL (1.8-8.9); NEUTROPHILS % (AUTO) 60.9 % (38.5-71.5); PLATELET COUNT (AUTO) 100 K/uL (152-348); RED BLOOD CELL COUNT(AUTO) 3.76 MIL/uL (4.06-5.63); RED CELL DISTRIBUTION WIDTH 16.4 % (12.1-16.2); WHITE BLOOD COUNT (AUTO) 4.6 K/uL (3.6-10.2)
[2023-09-09 05:12] LABS: DIFFERENTIAL COMMENT 1
[2023-09-09 05:22] LABS: CALCIUM 8.7 mg/dL (8.5-10.1); CREATININE 4.6 mg/dL (0.6-1.3); MAGNESIUM 1.9 mg/dL (1.8-2.4); PHOSPHOROUS 4.5 mg/dL (2.5-4.9); POTASSIUM 3.6 mmol/L (3.5-5.1)
[2023-09-09 06:07] LABS: ABG BASE EXCESS 0.9 mmol/L; ABG HCO3 23.3 mmol/L; ABG PCO2 29.7 mmHg (35.0-45.0); ABG PH 7.512 (7.350-7.450); ABG PO2 94.3 mmHg (75.0-100.0); ABG SITE LEFT BRACHIAL; COHb 0.3 % (0.5-1.5); MetHb 0.3 % (0.0-1.5); O2Hb 96.5 % (94.0-97.0); VENT MODE VENT - A/C; VT, ABG 500 mL
[2023-09-09] MEDS: PANTOPRAZOLE ORAL SUSPENSION 40 MG SUSPDR.PKT NG SCH (06:14)
[2023-09-09] MEDS: CLOTRIMAZOLE 1% CREAM 30 GM TUBE TOP SCH ×2 (09:00→17:19)
[2023-09-09] MEDS: QUETIAPINE FUMARATE 25 MG TABLET NG SCH ×2 (09:00→17:33)
[2023-09-09] MEDS: REMEDY ESSENTIAL ZINC PASTE 113 GM TOP SCH ×2 (09:00→20:34)
[2023-09-09] MEDS: CALCIUM ACETATE 667 MG CAP/TAB PO SCH ×3 (10:13→17:35)
[2023-09-09] MEDS: ASPIRIN 81 MG TAB.CHEW PO SCH (10:18)
[2023-09-09] MEDS: GABAPENTIN 100 MG CAPSULE PO SCH ×3 (10:19→17:33)
[2023-09-09] MEDS: levETIRAcetam 250 MG TABLET PO SCH ×2 (10:19→20:34)
[2023-09-09] MEDS: AMLODIPINE 5 MG TABLET PO SCH (10:20)
[2023-09-09] MEDS: MULTIVITAMINS,THERAPEUTIC TABLET PO SCH (10:20)
[2023-09-09] MEDS: SEVELAMER CARBONATE 800 MG POWD.PACK PO SCH ×3 (10:23→17:35)
[2023-09-10] VITALS (24 sets, daily range): BP systolic 96–147; BP diastolic 28–57; TEMP 96.6–97.8; O2SAT 98–100
[2023-09-10] MEDS: PROPOFOL 100 ML IV PRN ×4 (00:21→20:34)
[2023-09-10] MEDS: NEPRO 1000 ML GT PRN ×2 (00:34→08:52)
[2023-09-10 01:23] LABS: PROTEIN, BODY FLUID 2.6 G/DL
[2023-09-10 01:28] LABS: TOTAL VOLUME,BODY FLUID 985 mL
[2023-09-10 01:29] LABS: WBC, BODY FLUID 68 /cu. mm (0-200/cu.mm)
[2023-09-10 05:04] LABS: BASOPHILS % (AUTO) 0.8 % (0.0-2.0); EOSINOPHILS # (AUTO) 0.5 K/uL (0.0-0.7); HEMATOCRIT 28.8 % (36.7-47.1); HEMOGLOBIN 9.5 g/dL (12.5-16.3); LYMPHOCYTES # (AUTO) 0.8 K/uL (0.8-4.8); LYMPHOCYTES % (AUTO) 13.8 % (20.5-51.5); MEAN CORPUSCULAR HEMOGLOBIN 28.1 uug (23.8-33.4); MEAN CORPUSCULAR HGB CONC 33 g/dL (32.5-36.3); MONOCYTES # (AUTO) 0.6 K/uL (0.1-1.30); MONOCYTES % (AUTO) 10.2 % (0.0-11.0); NEUTROPHILS # (AUTO) 3.8 K/uL (1.8-8.9); NEUTROPHILS % (AUTO) 66.2 % (38.5-71.5); PLATELET COUNT (AUTO) 96 K/uL (152-348); RED BLOOD CELL COUNT(AUTO) 3.38 MIL/uL (4.06-5.63); RED CELL DISTRIBUTION WIDTH 16.8 % (12.1-16.2); WHITE BLOOD COUNT (AUTO) 5.8 K/uL (3.6-10.2)
[2023-09-10 05:07] LABS: POLYNUCLEAR, BODY FLUID 85 % (0-25%)
[2023-09-10 05:08] LABS: MONOCYTES,BODY FLUID 0 %
[2023-09-10 05:09] LABS: DIFFERENTIAL COMMENT 1
[2023-09-10] MEDS: PIPERACILLIN/TAZO 2.25 G in IV DEXTROSE 5% 50 ML IV SCH ×2 (05:14→13:24)
[2023-09-10 05:16] LABS: CALCIUM 8.8 mg/dL (8.5-10.1); CREATININE 5.6 mg/dL (0.6-1.3); MAGNESIUM 1.9 mg/dL (1.8-2.4); PHOSPHOROUS 5.6 mg/dL (2.5-4.9); POTASSIUM 3.8 mmol/L (3.5-5.1)
[2023-09-10] MEDS: PANTOPRAZOLE ORAL SUSPENSION 40 MG SUSPDR.PKT NG SCH (06:53)
[2023-09-10 07:36] LABS: ABG BASE EXCESS -2.7 mmol/L; ABG HCO3 23.6 mmol/L; ABG PCO2 47.1 mmHg (35.0-45.0); ABG PH 7.317 (7.350-7.450); ABG PO2 76.4 mmHg (75.0-100.0); ABG SITE LEFT BRACHIAL; ABG TOTAL HEMOGLOBIN 10.6 G/dL (13.5-18.0); COHb 0.7 % (0.5-1.5); MetHb 0.3 % (0.0-1.5); O2Hb 91.9 % (94.0-97.0); VENT MODE VENT - CPAP
[2023-09-10] MEDS: CALCIUM ACETATE 667 MG CAP/TAB PO SCH ×3 (08:37→17:52)
[2023-09-10] MEDS: GABAPENTIN 100 MG CAPSULE PO SCH ×3 (08:38→17:52)
[2023-09-10] MEDS: QUETIAPINE FUMARATE 25 MG TABLET NG SCH ×2 (08:38→17:51)
[2023-09-10] MEDS: MULTIVITAMINS,THERAPEUTIC TABLET PO SCH (08:38)
[2023-09-10] MEDS: SEVELAMER CARBONATE 800 MG POWD.PACK PO SCH ×3 (08:39→17:52)
[2023-09-10] MEDS: levETIRAcetam 250 MG TABLET PO SCH ×2 (08:40→20:48)
[2023-09-10] MEDS: AMLODIPINE 5 MG TABLET PO SCH (08:44)
[2023-09-10] MEDS: CLOTRIMAZOLE 1% CREAM 30 GM TUBE TOP SCH ×2 (08:55→17:52)
[2023-09-10] MEDS: REMEDY ESSENTIAL ZINC PASTE 113 GM TOP SCH ×2 (10:00→20:49)
[2023-09-10] MEDS: ASPIRIN 81 MG TAB.CHEW PO SCH (11:10)
[2023-09-10] MEDS: IV NORMAL SALINE 250 ML IV PRN (20:46)
[2023-09-11] VITALS (21 sets, daily range): BP systolic 89–137; BP diastolic 25–61; TEMP 95.8–98; O2SAT 97–100
[2023-09-11] MEDS: PROPOFOL 100 ML IV PRN (02:29)
[2023-09-11 05:11] LABS: BASOPHILS # (AUTO) 0.1 K/UL (0.0-0.2); BASOPHILS % (AUTO) 1.1 % (0.0-2.0); EOSINOPHILS # (AUTO) 0.4 K/uL (0.0-0.7); EOSINOPHILS % (AUTO) 8.1 % (0.0-7.0); HEMATOCRIT 29.8 % (36.7-47.1); LYMPHOCYTES # (AUTO) 0.6 K/uL (0.8-4.8); LYMPHOCYTES % (AUTO) 11.6 % (20.5-51.5); MEAN CORPUSCULAR HEMOGLOBIN 28.1 uug (23.8-33.4); MEAN CORPUSCULAR HGB CONC 34 g/dL (32.5-36.3); MEAN CORPUSCULAR VOLUME 83.9 fL (73.0-96.2); MONOCYTES # (AUTO) 0.4 K/uL (0.1-1.30); MONOCYTES % (AUTO) 8.2 % (0.0-11.0); NEUTROPHILS # (AUTO) 3.8 K/uL (1.8-8.9); PLATELET COUNT (AUTO) 94 K/uL (152-348); RED BLOOD CELL COUNT(AUTO) 3.56 MIL/uL (4.06-5.63); RED CELL DISTRIBUTION WIDTH 16.7 % (12.1-16.2); WHITE BLOOD COUNT (AUTO) 5.4 K/uL (3.6-10.2)
[2023-09-11 05:29] LABS: DIFFERENTIAL COMMENT 1
[2023-09-11 05:31] LABS: ALBUMIN 2.1 g/dL (3.4-5.0); BILIRUBIN,DIRECT 0.2 mg/dL (0.0-0.2); BILIRUBIN,TOTAL 0.4 mg/dL (0.2-1.0); CREATININE 4.6 mg/dL (0.6-1.3); PHOSPHOROUS 4.8 mg/dL (2.5-4.9); POTASSIUM 3.7 mmol/L (3.5-5.1); TOTAL PROTEIN, SERUM 5.7 g/dL (6.4-8.2)
[2023-09-11 05:34] LABS: CALCIUM 8.7 mg/dL (8.5-10.1)
[2023-09-11] MEDS: PANTOPRAZOLE ORAL SUSPENSION 40 MG SUSPDR.PKT NG SCH (06:06)
[2023-09-11] MEDS: REMEDY ESSENTIAL ZINC PASTE 113 GM TOP SCH ×2 (08:00→20:26)
[2023-09-11] MEDS: CLOTRIMAZOLE 1% CREAM 30 GM TUBE TOP SCH ×2 (08:00→17:03)
[2023-09-11] MEDS: CALCIUM ACETATE 667 MG CAP/TAB PO SCH ×3 (08:00→17:03)
[2023-09-11 09:29] LABS: ABG BASE EXCESS 1.7 mmol/L; ABG HCO3 26.7 mmol/L; ABG PCO2 43.5 mmHg (35.0-45.0); ABG PH 7.406 (7.350-7.450); ABG SITE RIGHT RADIAL; ABG TOTAL HEMOGLOBIN 10.3 G/dL (13.5-18.0); COHb 0.6 % (0.5-1.5); CPAP,BG 8 cmH20; MetHb 0.3 % (0.0-1.5); O2Hb 95.6 % (94.0-97.0); VENT MODE CPAP
[2023-09-11] MEDS: MULTIVITAMINS,THERAPEUTIC TABLET PO SCH (09:36)
[2023-09-11] MEDS: levETIRAcetam 250 MG TABLET PO SCH ×2 (09:36→20:25)
[2023-09-11] MEDS: ASPIRIN 81 MG TAB.CHEW PO SCH (09:36)
[2023-09-11] MEDS: QUETIAPINE FUMARATE 25 MG TABLET NG SCH ×2 (09:36→17:03)
[2023-09-11] MEDS: GABAPENTIN 100 MG CAPSULE PO SCH ×3 (09:36→17:03)
[2023-09-11] MEDS: SEVELAMER CARBONATE 800 MG POWD.PACK PO SCH ×3 (09:38→17:03)
[2023-09-11] MEDS: HALOPERIDOL LACTATE 5 MG/1 ML VIAL IM PRN (13:10)
[2023-09-11] MEDS: ALBUMIN HUMAN 25% 100 ML IV PRN ×2 (13:24→13:27)
[2023-09-11] MEDS: MORPHINE SULFATE 2 MG/1 ML DISP.SYRIN IVP PRN (20:31)
[2023-09-12] VITALS (30 sets, daily range): BP systolic 70–154; BP diastolic 20–73; TEMP 97.3–97.7; O2SAT 30–100
[2023-09-12 00:19] LABS: ABG BASE EXCESS -4.6 mmol/L; ABG HCO3 26.1 mmol/L; ABG PCO2 84.1 mmHg (35.0-45.0); ABG PO2 99.5 mmHg (75.0-100.0); ABG SITE LEFT BRACHIAL; ABG TOTAL HEMOGLOBIN 10.7 G/dL (13.5-18.0); COHb 0.7 % (0.5-1.5); O2Hb 94.2 % (94.0-97.0)
[2023-09-12 06:15] LABS: BASOPHILS # (AUTO) 0.1 K/UL (0.0-0.2); BASOPHILS % (AUTO) 0.5 % (0.0-2.0); EOSINOPHILS # (AUTO) 0.5 K/uL (0.0-0.7); EOSINOPHILS % (AUTO) 3.8 % (0.0-7.0); HEMATOCRIT 30.6 % (36.7-47.1); HEMOGLOBIN 9.8 g/dL (12.5-16.3); LYMPHOCYTES # (AUTO) 1.1 K/uL (0.8-4.8); LYMPHOCYTES % (AUTO) 9.3 % (20.5-51.5); MEAN CORPUSCULAR HEMOGLOBIN 27.6 uug (23.8-33.4); MEAN CORPUSCULAR HGB CONC 32 g/dL (32.5-36.3); MEAN CORPUSCULAR VOLUME 86.1 fL (73.0-96.2); MONOCYTES # (AUTO) 1.3 K/uL (0.1-1.30); MONOCYTES % (AUTO) 10.1 % (0.0-11.0); NEUTROPHILS # (AUTO) 9.4 K/uL (1.8-8.9); NEUTROPHILS % (AUTO) 76.3 % (38.5-71.5); PLATELET COUNT (AUTO) 124 K/uL (152-348); RED BLOOD CELL COUNT(AUTO) 3.56 MIL/uL (4.06-5.63); RED CELL DISTRIBUTION WIDTH 16.9 % (12.1-16.2); WHITE BLOOD COUNT (AUTO) 12.3 K/uL (3.6-10.2)
[2023-09-12 06:27] LABS: DIFFERENTIAL COMMENT 1
[2023-09-12] MEDS: PANTOPRAZOLE ORAL SUSPENSION 40 MG SUSPDR.PKT NG SCH (06:30)
[2023-09-12 06:44] LABS: CALCIUM 9.4 mg/dL (8.5-10.1); CREATININE 6.2 mg/dL (0.6-1.3); MAGNESIUM 1.9 mg/dL (1.8-2.4); PHOSPHOROUS 6.5 mg/dL (2.5-4.9)
[2023-09-12] MEDS: HALOPERIDOL LACTATE 5 MG/1 ML VIAL IM PRN ×2 (07:42→20:47)
[2023-09-12 08:14] LABS: ABG BASE EXCESS -3.7 mmol/L; ABG HCO3 23.2 mmol/L; ABG PCO2 50.7 mmHg (35.0-45.0); ABG PH 7.278 (7.350-7.450); ABG SITE RIGHT RADIAL; ABG TOTAL HEMOGLOBIN 10.5 G/dL (13.5-18.0); MetHb 0.3 % (0.0-1.5); O2Hb 86.4 % (94.0-97.0); VENT MODE BIPAP - 18/6
[2023-09-12] MEDS: CALCIUM ACETATE 667 MG CAP/TAB PO SCH ×3 (09:08→17:10)
[2023-09-12] MEDS: SEVELAMER CARBONATE 800 MG POWD.PACK PO SCH ×3 (09:08→17:11)
[2023-09-12] MEDS: QUETIAPINE FUMARATE 25 MG TABLET NG SCH ×2 (09:09→17:10)
[2023-09-12] MEDS: levETIRAcetam 250 MG TABLET PO SCH ×2 (09:10→20:47)
[2023-09-12] MEDS: MULTIVITAMINS,THERAPEUTIC TABLET PO SCH (09:10)
[2023-09-12] MEDS: ASPIRIN 81 MG TAB.CHEW PO SCH (09:10)
[2023-09-12] MEDS: GABAPENTIN 100 MG CAPSULE PO SCH ×3 (09:10→17:10)
[2023-09-12] MEDS: CLOTRIMAZOLE 1% CREAM 30 GM TUBE TOP SCH ×2 (09:11→17:11)
[2023-09-12] MEDS: REMEDY ESSENTIAL ZINC PASTE 113 GM TOP SCH ×2 (09:12→20:48)
[2023-09-12 12:34] LABS: ABG BASE EXCESS -1.1 mmol/L; ABG HCO3 23.7 mmol/L; ABG PCO2 39.8 mmHg (35.0-45.0); ABG PH 7.393 (7.350-7.450); ABG PO2 139.5 mmHg (75.0-100.0); ABG SITE RIGHT RADIAL; ABG TOTAL HEMOGLOBIN 10.2 G/dL (13.5-18.0); COHb 0.3 % (0.5-1.5); MetHb 0.3 % (0.0-1.5); O2Hb 97.9 % (94.0-97.0); VENT MODE BIPAP - 18/6
[2023-09-13] VITALS (22 sets, daily range): BP systolic 104–150; BP diastolic 32–87; TEMP 97.7–97.8; O2SAT 97–100
[2023-09-13] MEDS: PANTOPRAZOLE ORAL SUSPENSION 40 MG SUSPDR.PKT NG SCH (05:56)
[2023-09-13] MEDS: HALOPERIDOL LACTATE 5 MG/1 ML VIAL IM PRN (07:39)
[2023-09-13] MEDS: NEPRO 1000 ML GT PRN ×2 (07:47→07:50)
[2023-09-13 08:27] LABS: ABG BASE EXCESS -2.4 mmol/L; ABG HCO3 24.7 mmol/L; ABG PCO2 54.1 mmHg (35.0-45.0); ABG PH 7.277 (7.350-7.450); ABG PO2 109.3 mmHg (75.0-100.0); ABG SITE RIGHT RADIAL; ABG TOTAL HEMOGLOBIN 10.1 G/dL (13.5-18.0); MetHb 0.3 % (0.0-1.5); VENT MODE Nasal Cannula
[2023-09-13] MEDS: CALCIUM ACETATE 667 MG CAP/TAB PO SCH ×3 (09:04→17:51)
[2023-09-13] MEDS: SEVELAMER CARBONATE 800 MG POWD.PACK PO SCH ×3 (09:04→17:52)
[2023-09-13] MEDS: QUETIAPINE FUMARATE 25 MG TABLET NG SCH ×2 (09:05→17:50)
[2023-09-13] MEDS: ASPIRIN 81 MG TAB.CHEW PO SCH (09:05)
[2023-09-13] MEDS: levETIRAcetam 250 MG TABLET PO SCH ×2 (09:06→20:02)
[2023-09-13] MEDS: GABAPENTIN 100 MG CAPSULE PO SCH ×3 (09:06→17:51)
[2023-09-13] MEDS: MULTIVITAMINS,THERAPEUTIC TABLET PO SCH (09:06)
[2023-09-13] MEDS: REMEDY ESSENTIAL ZINC PASTE 113 GM TOP SCH ×2 (09:07→20:02)
[2023-09-13] MEDS: CLOTRIMAZOLE 1% CREAM 30 GM TUBE TOP SCH ×2 (09:07→17:52)
[2023-09-14] VITALS (25 sets, daily range): BP systolic 101–156; BP diastolic 56–93; TEMP 97.8–98; O2SAT 97–100
[2023-09-14 05:08] LABS: BASOPHILS # (AUTO) 0.1 K/UL (0.0-0.2); EOSINOPHILS # (AUTO) 0.6 K/uL (0.0-0.7); EOSINOPHILS % (AUTO) 8.3 % (0.0-7.0); HEMATOCRIT 25.8 % (36.7-47.1); HEMOGLOBIN 8.6 g/dL (12.5-16.3); LYMPHOCYTES # (AUTO) 0.9 K/uL (0.8-4.8); LYMPHOCYTES % (AUTO) 13.9 % (20.5-51.5); MEAN CORPUSCULAR HEMOGLOBIN 28.5 uug (23.8-33.4); MEAN CORPUSCULAR HGB CONC 33 g/dL (32.5-36.3); MEAN CORPUSCULAR VOLUME 85.5 fL (73.0-96.2); MONOCYTES # (AUTO) 0.6 K/uL (0.1-1.30); MONOCYTES % (AUTO) 9.4 % (0.0-11.0); NEUTROPHILS # (AUTO) 4.5 K/uL (1.8-8.9); NEUTROPHILS % (AUTO) 67.4 % (38.5-71.5); PLATELET COUNT (AUTO) 102 K/uL (152-348); RED BLOOD CELL COUNT(AUTO) 3.02 MIL/uL (4.06-5.63); RED CELL DISTRIBUTION WIDTH 16.3 % (12.1-16.2); WHITE BLOOD COUNT (AUTO) 6.7 K/uL (3.6-10.2)
[2023-09-14 05:14] LABS: DIFFERENTIAL COMMENT 1
[2023-09-14 05:22] LABS: ALBUMIN 2.7 g/dL (3.4-5.0); BILIRUBIN,TOTAL 0.6 mg/dL (0.2-1.0); CALCIUM 9.3 mg/dL (8.5-10.1); CREATININE 4.6 mg/dL (0.6-1.3); MAGNESIUM 2.2 mg/dL (1.8-2.4); PHOSPHOROUS 5.3 mg/dL (2.5-4.9); TOTAL PROTEIN, SERUM 6.7 g/dL (6.4-8.2)
[2023-09-14] MEDS: PANTOPRAZOLE ORAL SUSPENSION 40 MG SUSPDR.PKT NG SCH (06:40)
[2023-09-14] MEDS: CALCIUM ACETATE 667 MG CAP/TAB PO SCH ×3 (07:59→17:03)
[2023-09-14] MEDS: SEVELAMER CARBONATE 800 MG POWD.PACK PO SCH ×3 (08:00→17:02)
[2023-09-14] MEDS: QUETIAPINE FUMARATE 25 MG TABLET NG SCH ×2 (08:00→16:59)
[2023-09-14] MEDS: ASPIRIN 81 MG TAB.CHEW PO SCH (08:00)
[2023-09-14] MEDS: levETIRAcetam 250 MG TABLET PO SCH ×2 (08:00→17:03)
[2023-09-14] MEDS: GABAPENTIN 100 MG CAPSULE PO SCH ×3 (08:01→17:03)
[2023-09-14] MEDS: MULTIVITAMINS,THERAPEUTIC TABLET PO SCH (08:01)
[2023-09-14] MEDS: REMEDY ESSENTIAL ZINC PASTE 113 GM TOP SCH ×2 (08:02→21:23)
[2023-09-14] MEDS: CLOTRIMAZOLE 1% CREAM 30 GM TUBE TOP SCH ×2 (08:02→17:03)
[2023-09-14] MEDS ORDERED: ACETAMINOPHEN 325 MG TABLET PO PRN (08:30)
[2023-09-14 09:05] LABS: ABG BASE EXCESS -0.4 mmol/L; ABG HCO3 26.9 mmol/L; ABG PCO2 58.5 mmHg (35.0-45.0); ABG PO2 69.4 mmHg (75.0-100.0); ABG SITE LEFT RADIAL; ABG TOTAL HEMOGLOBIN 9.4 G/dL (13.5-18.0); COHb 0.8 % (0.5-1.5); O2Hb 91.7 % (94.0-97.0); VENT MODE Nasal Cannula 1L
[2023-09-15] VITALS (21 sets, daily range): BP systolic 119–164; BP diastolic 68–129; TEMP 97.6–98.9; O2SAT 92–100
[2023-09-15] MEDS: PANTOPRAZOLE ORAL SUSPENSION 40 MG SUSPDR.PKT NG SCH (06:11)
[2023-09-15 06:22] LABS: ABG BASE EXCESS -3.8 mmol/L; ABG HCO3 23.5 mmol/L; ABG PH 7.273 (7.350-7.450); ABG PO2 68.9 mmHg (75.0-100.0); ABG SITE LEFT BRACHIAL; ABG TOTAL HEMOGLOBIN 12.8 G/dL (13.5-18.0); COHb 1.2 % (0.5-1.5); MetHb 0.3 % (0.0-1.5); O2Hb 90.2 % (94.0-97.0); VENT MODE Nasal Cannula
[2023-09-15 08:09] LABS: BASOPHILS # (AUTO) 0.1 K/UL (0.0-0.2); BASOPHILS % (AUTO) 0.9 % (0.0-2.0); EOSINOPHILS # (AUTO) 0.5 K/uL (0.0-0.7); EOSINOPHILS % (AUTO) 8.4 % (0.0-7.0); HEMATOCRIT 26.5 % (36.7-47.1); HEMOGLOBIN 8.7 g/dL (12.5-16.3); MEAN CORPUSCULAR HEMOGLOBIN 28.2 uug (23.8-33.4); MEAN CORPUSCULAR HGB CONC 33 g/dL (32.5-36.3); MEAN CORPUSCULAR VOLUME 86.2 fL (73.0-96.2); MONOCYTES # (AUTO) 0.7 K/uL (0.1-1.30); MONOCYTES % (AUTO) 11.1 % (0.0-11.0); NEUTROPHILS % (AUTO) 63.6 % (38.5-71.5); PLATELET COUNT (AUTO) 125 K/uL (152-348); RED BLOOD CELL COUNT(AUTO) 3.08 MIL/uL (4.06-5.63); RED CELL DISTRIBUTION WIDTH 16.4 % (12.1-16.2); WHITE BLOOD COUNT (AUTO) 6.3 K/uL (3.6-10.2)
[2023-09-15 08:21] LABS: DIFFERENTIAL COMMENT 1
[2023-09-15 08:28] LABS: ALBUMIN 2.7 g/dL (3.4-5.0); BILIRUBIN,TOTAL 0.4 mg/dL (0.2-1.0); CREATININE 6.1 mg/dL (0.6-1.3); MAGNESIUM 2.4 mg/dL (1.8-2.4); PHOSPHOROUS 5.8 mg/dL (2.5-4.9); TOTAL PROTEIN, SERUM 6.7 g/dL (6.4-8.2)
[2023-09-15] MEDS: ASPIRIN 81 MG TAB.CHEW PO SCH (08:46)
[2023-09-15] MEDS: GABAPENTIN 100 MG CAPSULE PO SCH ×3 (08:46→17:02)
[2023-09-15] MEDS: MULTIVITAMINS,THERAPEUTIC TABLET PO SCH (08:46)
[2023-09-15] MEDS: CALCIUM ACETATE 667 MG CAP/TAB PO SCH ×3 (08:46→17:02)
[2023-09-15] MEDS: QUETIAPINE FUMARATE 25 MG TABLET NG SCH ×2 (08:47→17:02)
[2023-09-15] MEDS: levETIRAcetam 250 MG TABLET PO SCH ×2 (08:48→20:58)
[2023-09-15] MEDS: SEVELAMER CARBONATE 800 MG POWD.PACK PO SCH ×3 (08:49→17:00)
[2023-09-15] MEDS: REMEDY ESSENTIAL ZINC PASTE 113 GM TOP SCH ×2 (08:51→20:59)
[2023-09-15] MEDS: CLOTRIMAZOLE 1% CREAM 30 GM TUBE TOP SCH ×2 (08:51→17:00)
[2023-09-15] MEDS: APIXABAN 2.5 MG TABLET PO SCH ×2 (10:03→21:00)
[2023-09-16] VITALS (20 sets, daily range): BP systolic 125–167; BP diastolic 42–84; TEMP 97.9–99.4; O2SAT 92–99
[2023-09-16 05:09] LABS: BASOPHILS # (AUTO) 0.1 K/UL (0.0-0.2); BASOPHILS % (AUTO) 1.1 % (0.0-2.0); EOSINOPHILS # (AUTO) 0.5 K/uL (0.0-0.7); EOSINOPHILS % (AUTO) 8.8 % (0.0-7.0); HEMATOCRIT 25.1 % (36.7-47.1); HEMOGLOBIN 8.3 g/dL (12.5-16.3); LYMPHOCYTES # (AUTO) 1.1 K/uL (0.8-4.8); LYMPHOCYTES % (AUTO) 20.9 % (20.5-51.5); MEAN CORPUSCULAR HEMOGLOBIN 28.2 uug (23.8-33.4); MEAN CORPUSCULAR HGB CONC 33 g/dL (32.5-36.3); MEAN CORPUSCULAR VOLUME 85.4 fL (73.0-96.2); MONOCYTES # (AUTO) 0.5 K/uL (0.1-1.30); MONOCYTES % (AUTO) 9.2 % (0.0-11.0); NEUTROPHILS # (AUTO) 3.2 K/uL (1.8-8.9); PLATELET COUNT (AUTO) 125 K/uL (152-348); RED BLOOD CELL COUNT(AUTO) 2.94 MIL/uL (4.06-5.63); RED CELL DISTRIBUTION WIDTH 15.8 % (12.1-16.2); WHITE BLOOD COUNT (AUTO) 5.3 K/uL (3.6-10.2)
[2023-09-16 05:15] LABS: DIFFERENTIAL COMMENT 1
[2023-09-16 05:20] LABS: CALCIUM 8.9 mg/dL (8.5-10.1); MAGNESIUM 2.2 mg/dL (1.8-2.4); PHOSPHOROUS 4.4 mg/dL (2.5-4.9); POTASSIUM 3.9 mmol/L (3.5-5.1)
[2023-09-16 06:15] LABS: ABG BASE EXCESS -0.1 mmol/L; ABG HCO3 26.8 mmol/L; ABG PCO2 55.8 mmHg (35.0-45.0); ABG PH 7.299 (7.350-7.450); ABG PO2 63.4 mmHg (75.0-100.0); ABG SITE RIGHT RADIAL; ABG TOTAL HEMOGLOBIN 8.9 G/dL (13.5-18.0); COHb 0.9 % (0.5-1.5); MetHb 0.1 % (0.0-1.5); O2Hb 89.6 % (94.0-97.0); VENT MODE Nasal Cannula
[2023-09-16] MEDS: PANTOPRAZOLE ORAL SUSPENSION 40 MG SUSPDR.PKT NG SCH (06:47)
[2023-09-16] MEDS: MULTIVITAMINS,THERAPEUTIC TABLET PO SCH (08:06)
[2023-09-16] MEDS: CALCIUM ACETATE 667 MG CAP/TAB PO SCH ×3 (08:06→16:54)
[2023-09-16] MEDS: QUETIAPINE FUMARATE 25 MG TABLET NG SCH ×2 (08:06→16:54)
[2023-09-16] MEDS: ASPIRIN 81 MG TAB.CHEW PO SCH (08:07)
[2023-09-16] MEDS: APIXABAN 2.5 MG TABLET PO SCH ×2 (08:07→21:43)
[2023-09-16] MEDS: GABAPENTIN 100 MG CAPSULE PO SCH ×3 (08:07→16:54)
[2023-09-16] MEDS: SEVELAMER CARBONATE 800 MG POWD.PACK PO SCH ×2 (08:08→11:59)
[2023-09-16] MEDS: levETIRAcetam 250 MG TABLET PO SCH ×2 (08:08→21:34)
[2023-09-16] MEDS: REMEDY ESSENTIAL ZINC PASTE 113 GM TOP SCH ×2 (08:09→21:34)
[2023-09-16] MEDS: CLOTRIMAZOLE 1% CREAM 30 GM TUBE TOP SCH ×2 (08:09→16:51)
[2023-09-16] MEDS: hydrALAZINE HCL 20 MG/1 ML VIAL IV PRN ×2 (10:57→16:55)
[2023-09-16] MEDS: SEVELAMER CARBONATE 800 MG TABLET PO SCH (16:51)
[2023-09-17] VITALS (9 sets, daily range): BP systolic 108–174; BP diastolic 36–89; TEMP 97–98.1; O2SAT 98–100
[2023-09-17 06:47] LABS: BASOPHILS # (AUTO) 0.1 K/UL (0.0-0.2); BASOPHILS % (AUTO) 2.1 % (0.0-2.0); EOSINOPHILS # (AUTO) 0.5 K/uL (0.0-0.7); HEMATOCRIT 26.1 % (36.7-47.1); HEMOGLOBIN 8.5 g/dL (12.5-16.3); LYMPHOCYTES # (AUTO) 1.2 K/uL (0.8-4.8); LYMPHOCYTES % (AUTO) 19.8 % (20.5-51.5); MEAN CORPUSCULAR HGB CONC 33 g/dL (32.5-36.3); MEAN CORPUSCULAR VOLUME 85.4 fL (73.0-96.2); MONOCYTES # (AUTO) 0.6 K/uL (0.1-1.30); NEUTROPHILS # (AUTO) 3.5 K/uL (1.8-8.9); NEUTROPHILS % (AUTO) 59.1 % (38.5-71.5); PLATELET COUNT (AUTO) 116 K/uL (152-348); RED BLOOD CELL COUNT(AUTO) 3.05 MIL/uL (4.06-5.63); RED CELL DISTRIBUTION WIDTH 15.6 % (12.1-16.2); WHITE BLOOD COUNT (AUTO) 5.9 K/uL (3.6-10.2)
[2023-09-17 06:48] LABS: DIFFERENTIAL COMMENT 1
[2023-09-17] MEDS ORDERED: PANTOPRAZOLE SODIUM 40 MG TABLET.DR PO SCH (07:00)
[2023-09-17 07:07] LABS: CALCIUM 9.1 mg/dL (8.5-10.1); CREATININE 6.7 mg/dL (0.6-1.3); PHOSPHOROUS 5.1 mg/dL (2.5-4.9); POTASSIUM 4.6 mmol/L (3.5-5.1)
[2023-09-17] MEDS ORDERED: QUETIAPINE FUMARATE 25 MG TABLET PO PRN (08:15)
[2023-09-17] MEDS: CALCIUM ACETATE 667 MG CAP/TAB PO SCH ×3 (08:29→17:18)
[2023-09-17] MEDS: ASPIRIN 81 MG TAB.CHEW PO SCH (08:29)
[2023-09-17] MEDS: QUETIAPINE FUMARATE 25 MG TABLET PO SCH ×2 (08:30→17:18)
[2023-09-17] MEDS: MULTIVITAMINS,THERAPEUTIC TABLET PO SCH (08:30)
[2023-09-17] MEDS: levETIRAcetam 250 MG TABLET PO SCH ×2 (08:30→19:49)
[2023-09-17] MEDS: GABAPENTIN 100 MG CAPSULE PO SCH ×3 (08:30→17:18)
[2023-09-17 08:34] LABS: ABG BASE EXCESS -2.4 mmol/L; ABG HCO3 24.5 mmol/L; ABG PH 7.282 (7.350-7.450); ABG PO2 50.6 mmHg (75.0-100.0); ABG SITE RIGHT RADIAL; ABG TOTAL HEMOGLOBIN 9.1 G/dL (13.5-18.0); COHb 0.9 % (0.5-1.5); MetHb 0.3 % (0.0-1.5); O2Hb 81.8 % (94.0-97.0); VENT MODE Nasal Cannula
[2023-09-17] MEDS: CLOTRIMAZOLE 1% CREAM 30 GM TUBE TOP SCH ×2 (08:47→17:18)
[2023-09-17] MEDS: REMEDY ESSENTIAL ZINC PASTE 113 GM TOP SCH ×2 (08:47→19:49)
[2023-09-17] MEDS: SEVELAMER CARBONATE 800 MG TABLET PO SCH ×3 (08:47→17:18)
[2023-09-17] MEDS: hydrALAZINE HCL 20 MG/1 ML VIAL IV PRN (10:45)
[2023-09-17] MEDS: HALOPERIDOL LACTATE 5 MG/1 ML VIAL IM PRN (19:24)
== END 2023-09-17 23:40 | disposition short-term general hospital (02) | DRG 207 ==
LOC: ER 16:18 → TELE3 18:30 → DOU3 08-26 14:32 → TELE-TD3 08-26 18:00 → TELE3 08-27 08:18 → MEDSURG3 08-30 09:34 → CCU 09-01 14:45
PROVIDERS: ADMIT Internal Medicine; ATTEND Nurse Practitioner Acute Care
PROC: 5A1D70Z Performance of Urinary Filtration, Intermittent, Less than 6 Hours Per Day (ICD-10-PCS; 2023-08-26)
PROC: 5A09357 Assistance with Respiratory Ventilation, Less than 24 Consecutive Hours, Continuous Positive Airway Pressure (ICD-10-PCS; principal; 2023-09-01)
PROC: 5A1945Z Respiratory Ventilation, 24-96 Consecutive Hours (ICD-10-PCS; 2023-09-02)
PROC: 0BH17EZ Insertion of Endotracheal Airway into Trachea, Via Natural or Artificial Opening (ICD-10-PCS; 2023-09-02)
PROC: 05H533Z Insertion of Infusion Device into Right Subclavian Vein, Percutaneous Approach (ICD-10-PCS; 2023-09-02)
PROC: B546ZZA Ultrasonography of Right Subclavian Vein, Guidance (ICD-10-PCS; 2023-09-02)
PROC: 0BH17EZ Insertion of Endotracheal Airway into Trachea, Via Natural or Artificial Opening (ICD-10-PCS; 2023-09-05)
PROC: 5A1955Z Respiratory Ventilation, Greater than 96 Consecutive Hours (ICD-10-PCS; 2023-09-05)
PROC: 0W993ZZ Drainage of Right Pleural Cavity, Percutaneous Approach (ICD-10-PCS; 2023-09-09)
PROC: 05H633Z Insertion of Infusion Device into Left Subclavian Vein, Percutaneous Approach (ICD-10-PCS; 2023-09-15)
PROC: B547ZZA Ultrasonography of Left Subclavian Vein, Guidance (ICD-10-PCS; 2023-09-15)
DX: J96.21 Acute and chronic respiratory failure with hypoxia (principal); A41.9 Sepsis, unspecified organism; N18.6 End stage renal disease; J69.0 Pneumonitis due to inhalation of food and vomit; E43 Unspecified severe protein-calorie malnutrition; I21.A1 Myocardial infarction type 2; I50.31 Acute diastolic (congestive) heart failure; I13.2 Hypertensive heart and chronic kidney disease with heart failure and with stage 5 chronic kidney disease, or end stage renal disease; G82.20 Paraplegia, unspecified; J90 Pleural effusion, not elsewhere classified; D68.69 Other thrombophilia; G93.40 Encephalopathy, unspecified; J98.11 Atelectasis; N39.0 Urinary tract infection, site not specified; Z16.13 Resistance to carbapenem; J96.22 Acute and chronic respiratory failure with hypercapnia; B96.89 Other specified bacterial agents as the cause of diseases classified elsewhere; D63.8 Anemia in other chronic diseases classified elsewhere; D69.6 Thrombocytopenia, unspecified; D72.821 Monocytosis (symptomatic); E87.5 Hyperkalemia; I25.10 Atherosclerotic heart disease of native coronary artery without angina pectoris; N25.0 Renal osteodystrophy; Z76.82 Awaiting organ transplant status; Z79.4 Long term (current) use of insulin; Z86.73 Personal history of transient ischemic attack (TIA), and cerebral infarction without residual deficits; Z90.49 Acquired absence of other specified parts of digestive tract; Z87.440 Personal history of urinary (tract) infections; Z95.5 Presence of coronary angioplasty implant and graft; Z99.2 Dependence on renal dialysis; V89.2XXS Person injured in unspecified motor-vehicle accident, traffic, sequela; E11.22 Type 2 diabetes mellitus with diabetic chronic kidney disease; Z74.09 Other reduced mobility; F32.A Depression, unspecified; K62.89 Other specified diseases of anus and rectum; F39 Unspecified mood [affective] disorder; B96.5 Pseudomonas (aeruginosa) (mallei) (pseudomallei) as the cause of diseases classified elsewhere; J32.9 Chronic sinusitis, unspecified; H70.93 Unspecified mastoiditis, bilateral; G40.909 Epilepsy, unspecified, not intractable, without status epilepticus; Z68.23 Body mass index [BMI] 23.0-23.9, adult; M89.8X8 Other specified disorders of bone, other site; E78.5 Hyperlipidemia, unspecified; E87.6 Hypokalemia; I48.0 Paroxysmal atrial fibrillation; S91.202A Unspecified open wound of left great toe with damage to nail, initial encounter; X58.XXXA Exposure to other specified factors, initial encounter; Y92.89 Other specified places as the place of occurrence of the external cause; Y93.9 Activity, unspecified; I25.2 Old myocardial infarction; N26.1 Atrophy of kidney (terminal); Z85.118 Personal history of other malignant neoplasm of bronchus and lung
CPT/HCPCS: 32555; 36415; 36600; 70030-TC; 70450; 71045; 71260; 71275; 74018; 76604; 78306; 82378; 82747; 82784; 82803; 83550; 83605; 83615; 83735; 83986; 84100; 84153; 84155; 84165; 84443; 84478; 84484; 85014; 85025; 85610; 85730; 86038; 86140; 86301; 86334; 86430; 86706; 86803; 87040; 87340; 87806; 88185; 90937; 93005; 93307; 94002; 94003; 94640; 94660; 94760; 99082-TC; A4606; A4663; A6209; A9503; C1758; G0378; J0330; J0360; J1630; J1644; J1815; J2060; J2250; J2270; J2405; J2543; J3490; J7040; J7070; P9047; Q0163; Q9967